=== PATIENT | female | born 1950 | race African-American/Black ===

== ENCOUNTER → 2017-07-24 | Outpatient (CLI) | payer MEDICARE ==
[~2017-07-24] MED LIST: ACET500T68 PO; AMLO10TA2 PO; CHOL100013 PO; DULO60CA6 PO; METO25TA4 PO; OMEP40CA5 PO; POTASSIUM CHLO10 MEQ PO; SIMV20TA3 PO; TRAM50TA PO
--- NOTE | 2017-07-24 11:37 | RAD ---
DATE: July 24, 2017 EXAM: DIGITAL SCREEN BILAT W/CAD HISTORY: Routine screening. COMPARISON: Priors back to January 11, 2012. TECHNIQUE: 2D digital CC and MLO views of each breast were obtained. This study was interpreted with the benefit of Computerized Aided Detection (CAD). FINDINGS: The breast parenchyma demonstrates scattered fibroglandular densities, category B. Small mass in the outer lower right breast is stable. There is no worrisome mass. There are no suspicious groupings of microcalcifications IMPRESSION: Stable mammogram with benign findings. BI-RADS CATEGORY: 2 BENIGN FINDING RECOMMENDED FOLLOW-UP: 12M 12 MONTH FOLLOW-UP PQRS compliance statement: Patient information was entered into a reminder system with a target due date for the next mammogram. Mammography is a sensitive method for finding small breast cancers, but it does not detect them all and is not a substitute for careful clinical examination. A negative mammogram does not negate a clinically suspicious finding and should not result in delay in biopsying a clinically suspicious abnormality. "Our facility is accredited by the [employer] Mammography [employer]."
== END | disposition home or self-care (01) ==
LOC: MAMMO 10:34
PROVIDERS: ATTEND Family Medicine
DX: Z12.31 Encounter for screening mammogram for malignant neoplasm of breast (principal)
CPT/HCPCS: G0202; 77067

== ENCOUNTER → 2018-01-15 | Outpatient (CLI) | payer MEDICARE ==
[~2018-01-15] MED LIST changes: -ACET500T68 PO; -AMLO10TA2 PO; -CHOL100013 PO; -DULO60CA6 PO; -METO25TA4 PO; -OMEP40CA5 PO; -POTASSIUM CHLO10 MEQ PO; +REGADENOSON 0.4 MG/5 ML DISP.SYRIN. IV; -SIMV20TA3 PO; -TRAM50TA PO
== END | disposition home or self-care (01) ==
LOC: NM 10:44
DX: I10 Essential (primary) hypertension (principal); R06.09 Other forms of dyspnea
CPT/HCPCS: 78452; 93017; 93306; 96374; 96375; 96376; A9500; J2785

== ENCOUNTER → 2018-09-12 | Outpatient (CLI) | payer MEDICARE ==
[~2018-09-12] MED LIST changes: +ACET500T68 PO; +AMLO10TA6 PO; +CHOL100013 PO; +DULO60CA6 PO; +METO25TA4 PO; +OMEP40CA5 PO; +POTA10TA12 PO; -REGADENOSON 0.4 MG/5 ML DISP.SYRIN. IV; +SIMV20TA3 PO; +TRAM50TA PO
--- NOTE | 2018-09-12 15:45 | RAD ---
DATE: 09/12/2018 EXAM: MAMMO ALISON SCREENING BILATERAL HISTORY: Routine screen COMPARISON: 07/24/2017 This study was interpreted with the benefit of Computerized Aided Detection (CAD). Breast Density: SCATTERED The breast parenchyma shows scattered fibroglandular densities. Breast parenchyma level B. FINDINGS: 2-D and 3-D tomosynthesis imaging was performed in CC and MLO projections. A small benign-appearing lymph node type density in the anterolateral aspect of the right breast is unchanged. A small 5-6 mm smooth nodule is present centrally in the right breast, better demonstrated on the current CC alison images. This has been intermittently visualized on some of the other studies such as the 01/11/2012 study, and appears unchanged. No new or enlarging breast densities are seen. No suspicious microcalcifications are evident. IMPRESSION: Stable mammograms without evidence of malignancy. BI-RADS CATEGORY: 2 BENIGN FINDING(S) RECOMMENDED FOLLOW-UP: 12M 12 MONTH FOLLOW-UP PQRS compliance statement: Patient information was entered into a reminder system with a target due date for the next mammogram. Mammography is a sensitive method for finding small breast cancers, but it does not detect them all and is not a substitute for careful clinical examination. A negative mammogram does not negate a clinically suspicious finding and should not result in delay in biopsying a clinically suspicious abnormality. "Our facility is accredited by the [employer] Mammography [employer]."
== END | disposition home or self-care (01) ==
LOC: MAMMO 14:00
PROVIDERS: ATTEND Family Medicine
DX: Z12.31 Encounter for screening mammogram for malignant neoplasm of breast (principal)
CPT/HCPCS: 77063; 77067

== ENCOUNTER 2019-04-27 07:08 | Emergency (ER) | payer MEDICARE, OTHER ==
[~2019-04-27] VITALS: Ht 162.6 cm; Wt 99.3 kg
[~2019-04-27 07:08] MED LIST changes: -AMLO10TA6 PO; +AMLO10TA8 PO
--- NOTE | 2019-04-27 07:29 | PHYS DOC ---
Adult General Chief Complaint Chief Complaint: high blood pressure HPI HPI Patient is a 68 year old female who presents with complaining of high blood pressure and nausea and dizziness. Patient states she has had fluctuation of blood pressure with taking losartan and seen by her primary care physician and started on when necessary chronic pain and anxiety medication. Patient states she had cataract surgery yesterday and felt nausea and her blood pressure was as high as 205. Patient denies chest pain, shortness of breath, blurred vision, headache, focal neuro deficit. Review of Systems Review of Systems Constitutional: Denies fever or chills [] Eyes: Denies change in visual acuity, redness, or eye pain [] HENT: Denies nasal congestion or sore throat [] Respiratory: Denies cough or shortness of breath [] Cardiovascular: No additional information not addressed in HPI [] GI: Denies abdominal pain, vomiting, bloody stools or diarrhea , reports naus ea[] : Denies dysuria or hematuria [] Musculoskeletal: Denies back pain or joint pain [] Integument: Denies rash or skin lesions [] Neurologic: Denies headache, focal weakness or sensory changes [] Endocrine: Denies polyuria or polydipsia [] All other systems were reviewed and found to be within normal limits, except as documented in this note. Current Medications Current Medications Current Medications Medications (Trade) Dose Ordered Sig/Kari Start Time Stop Time Status Last Admin Dose Admin Ondansetron HCl (Zofran) 4 mg 1X ONCE 04/27/19 07:30 04/27/19 07:31 DC 04/27/19 08:00 4 MG Allergies Allergies Allergies Coded Allergies Type Severity Reaction Last Updated Verified No Known Drug Allergies 08/06/14 No Physical Exam Physical Exam Constitutional: Well developed, well nourished, mild distress, non-toxic appearance. [] HENT: Normocephalic, atraumatic, oropharynx moist. Eyes: PERRLA, EOMI, conjunctiva normal, no discharge. [] Neck: Normal range of motion, no tenderness, supple, no stridor. [] Cardiovascular:Heart rate regular rhythm, no murmur [] Lungs & Thorax: Bilateral breath sounds clear to auscultation [] Abdomen: Bowel sounds normal, soft, no tenderness, no masses, no pulsatile masses. [] Skin: Warm, dry, no erythema, no rash. [] Back: No tenderness, no CVA tenderness. [] Extremities: No tenderness, no cyanosis, no clubbing, ROM intact, no edema. [] Neurologic: Alert and oriented X 3, normal motor function, normal sensory function, no focal deficits noted. [] Psychologic: Affect anxious, judgement normal, mood normal. [] Current Patient Data Vital Signs Vital Signs Date Time Temp Pulse Resp B/P (MAP) Pulse Ox O2 Delivery O2 Flow Rate FiO2 04/27/19 07:20 98.2 88 16 207/93 (131) 98 Room Air 98.2 Lab Values Laboratory Tests Test 04/27/19 07:30 04/27/19 08:00 04/27/19 08:28 White Blood Count 6.0 x10^3/uL (4.0-11.0) Red Blood Count 4.95 x10^6/uL (3.50-5.40) Hemoglobin 13.5 g/dL (12.0-15.5) Hematocrit 40.3 % (36.0-47.0) Mean Corpuscular Volume 82 fL (79-100) Mean Corpuscular Hemoglobin 27 pg (25-35) Mean Corpuscular Hemoglobin Concent 33 g/dL (31-37) Red Cell Distribution Width 16.7 % (11.5-14.5) H Platelet Count 233 x10^3/uL (140-400) Neutrophils (%) (Auto) 65 % (31-73) Lymphocytes (%) (Auto) 24 % (24-48) Monocytes (%) (Auto) 7 % (0-9) Eosinophils (%) (Auto) 4 % (0-3) H Basophils (%) (Auto) 1 % (0-3) Neutrophils # (Auto) 3.9 x10^3/uL (1.8-7.7) Lymphocytes # (Auto) 1.4 x10^3/uL (1.0-4.8) Monocytes # (Auto) 0.4 x10^3/uL (0.0-1.1) Eosinophils # (Auto) 0.2 x10^3/uL (0.0-0.7) Basophils # (Auto) 0.1 x10^3/uL (0.0-0.2) Sodium Level 140 mmol/L (136-145) Potassium Level 3.5 mmol/L (3.5-5.1) Chloride Level 103 mmol/L (98-107) Carbon Dioxide Level 26 mmol/L (21-32) Anion Gap 11 (6-14) Blood Urea Nitrogen 10 mg/dL (7-20) Creatinine 0.8 mg/dL (0.6-1.0) Estimated GFR (Cockcroft-Gault) 86.1 BUN/Creatinine Ratio 13 (6-20) Glucose Level 107 mg/dL (70-99) H Calcium Level 9.3 mg/dL (8.5-10.1) Magnesium Level 2.2 mg/dL (1.8-2.4) Total Bilirubin 0.5 mg/dL (0.2-1.0) Aspartate Amino Transferase (AST) 18 U/L (15-37) Alanine Aminotransferase (ALT) 23 U/L (14-59) Alkaline Phosphatase 55 U/L (46-116) Creatine Kinase 83 U/L (26-192) Creatine Kinase MB (Mass) 1.2 ng/mL (0.0-3.6) Creatine Kinase MB Relative Index 1.4 % (0-4) Troponin I Quantitative < 0.017 ng/mL (0.000-0.055) ZU-Rie-J-Type Natriuretic Peptide 68 pg/mL (0-124) Total Protein 7.5 g/dL (6.4-8.2) Albumin 4.1 g/dL (3.4-5.0) Albumin/Globulin Ratio 1.2 (1.0-1.7) Lipase 99 U/L (73-393) Prothrombin Time 11.6 SEC (11.7-14.0) L Prothrombin Time INR 0.9 (0.8-1.1) Urine Collection Type Unknown Urine Color Yellow Urine Clarity Clear Urine pH 6.5 Urine Specific [place] 1.015 Urine Protein Negative mg/dL (NEG-TRACE) Urine Glucose (UA) Negative mg/dL (NEG) Urine Ketones (Stick) Negative mg/dL (NEG) Urine Blood Negative (NEG) Urine Nitrite Negative (NEG) Urine Bilirubin Negative (NEG) Urine Urobilinogen Dipstick 0.2 mg/dL (0.2 mg/dL) Urine Leukocyte Esterase Negative (NEG) Urine RBC 0 /HPF (0-2) Urine WBC Occ /HPF (0-4) Urine Squamous Epithelial Cells Mod /LPF Urine Bacteria Moderate /HPF (0-FEW) Laboratory Tests 04/27/19 07:30 Laboratory Tests 04/27/19 07:30 EKG EKG EKG interpreted by me. EKG at 0 727 showed normal sinus rhythm at rate of 81, normal CT and QT intervals, left randolph axis, no acute ST and T-wave abnormalities. Radiology/Procedures Radiology/Procedures [][place] [id number] IMAGING REPORT Signed PATIENT: FELECIA SHELTON ACCOUNT: [id number] : 1950 LOCATION: ER AGE: 68 SEX: F EXAM STATUS: REG ER ORD. PHYSICIAN: MARY MARTINEZ MD REASON: dizziness and elevation of blood pressure PROCEDURE: PORTABLE CHEST 1V Indication: Dizziness and elevated blood pressure TECHNIQUE: Single AP view of the chest COMPARISON: None FINDINGS: Heart is normal in size. Aortic knob calcifications present systemic artery hypertension. Lungs are clear. No pneumothorax or pleural effusion. Visualized bony thorax within normal limits. IMPRESSION: No acute pulmonary process. Electronically signed by: Vinod Villalobos DO (04/27/2019 8:12 AM) [facility] DICTATED and SIGNED BY: VINOD VILLALOBOS DO DATE: 04/27/[address] [id number] IMAGING REPORT Signed PATIENT: FELECIA SHELTON ACCOUNT: [id number] : 1950 LOCATION: ER AGE: 68 SEX: F EXAM STATUS: REG ER ORD. PHYSICIAN: MARY MARTINEZ MD REASON: dizziness and elevation of blood pressure PROCEDURE: CT HEAD WO CONTRAST PQRS Compliance statement: One or more of the following individualized dose reduction techniques were utilized for this examination: 1. Automated exposure control. 2. Adjustment of the mA and/or kV according to patient size. 3. Use of iterative reconstruction technique. Indication:Dizziness. Hypertension. TECHNIQUE: CT head without IV contrast COMPARISON: 03/14/2012 FINDINGS: No pathologic extra-axial or intra-axial fluid collection. The ventricles and basal cisterns are within normal limits. No acute intracranial bleed. No focal loss of verdin-white differentiation. Orbits are within normal limits. No suspicious calvarial lesion. Visualized paranasal sinuses and mastoid air cells are clear. IMPRESSION: No acute intracranial bleed. If concern for acute ischemic stroke is high, please consider MRI brain. Electronically signed by: Vinod Villalobos DO (04/27/2019 8:02 AM) [facility] DICTATED and SIGNED BY: VINOD VILLALOBOS DO DATE: 04/27/19 0802 Course & Med Decision Making Course & Med Decision Making Pertinent Labs and Imaging studies reviewed. (See chart for details) Evaluation of patient in ER showed 68-year-old female patient with complaining of dizziness and elevation of blood pressure. Patient had blood pressure of 207 at arrival to ER that gradually decreased without treatment to 173/99. Patient had unremarkable physical exam and CT head and chest x-ray, EKG, labs. He was advised to take when necessary chronically for elevation of blood pressure and continuing daily blood sugars medication and return to ER if symptoms persistent. Dragon Disclaimer Dragon Disclaimer This electronic medical record was generated, in whole or in part, using a voice recognition dictation system. Departure Departure Impression: Primary Impression: Uncontrolled hypertension Additional Impression: Anxiety about health Disposition: 01 HOME, SELF-CARE (at 0 925) Condition: IMPROVED Referrals: SOILA MUSTAFA MD (PCP) Patient Instructions: Form - Blood Pressure Record Sheet, How to Take Your Blood Pressure, Bcrs-tb-Laip, Managing Your High Blood Pressure Additional Instructions: Continue current medication Follow-up with your primary care physician in 3-5 days Return to ER if not getting better Problem Qualifiers MARY MARTINEZ MD Apr 27, 2019 07:29
[2019-04-27] MEDS ORDERED: ONDANSETRON PF 4 MG/2 ML VIAL. IV ONE (07:30)
[2019-04-27 07:37] LABS: BASO # 0.1 x10^3/uL (0.0-0.2); BASO % 1 % (0-3); EOS # 0.2 x10^3/uL (0.0-0.7); EOS % 4 % (0-3); HEMATOCRIT 40.3 % (36.0-47.0); HEMOGLOBIN 13.5 g/dL (12.0-15.5); LYMPH # 1.4 x10^3/uL (1.0-4.8); LYMPH % 24 % (24-48); MEAN CORPUSCULAR HEMOGLOBIN 27 pg (25-35); MEAN CORPUSCULAR HGB CONC 33 g/dL (31-37); MEAN CORPUSCULAR VOLUME 82 fL (79-100); MONO # 0.4 x10^3/uL (0.0-1.1); MONO % 7 % (0-9); NEUT # 3.9 x10^3/uL (1.8-7.7); NEUT % 65 % (31-73); PLATELET COUNT 233 x10^3/uL (140-400); RED BLOOD COUNT 4.95 x10^6/uL (3.50-5.40); RED CELL DISTRIBUTION WIDTH 16.7 % (11.5-14.5)
[2019-04-27 07:50] LABS: CALCIUM 9.3 mg/dL (8.5-10.1); CREATININE 0.8 mg/dL (0.6-1.0); GFR 86.1; POTASSIUM 3.5 mmol/L (3.5-5.1)
[2019-04-27 07:56] LABS: ALBUMIN 4.1 g/dL (3.4-5.0); ALBUMIN/GLOBULIN RATIO 1.2 (1.0-1.7); MAGNESIUM 2.2 mg/dL (1.8-2.4); TOTAL BILIRUBIN 0.5 mg/dL (0.2-1.0); TOTAL PROTEIN 7.5 g/dL (6.4-8.2)
--- NOTE | 2019-04-27 08:05 | RAD ---
PQRS Compliance statement: One or more of the following individualized dose reduction techniques were utilized for this examination: 1. Automated exposure control. 2. Adjustment of the mA and/or kV according to patient size. 3. Use of iterative reconstruction technique. Indication:Dizziness. Hypertension. TECHNIQUE: CT head without IV contrast COMPARISON: 03/14/2012 FINDINGS: No pathologic extra-axial or intra-axial fluid collection. The ventricles and basal cisterns are within normal limits. No acute intracranial bleed. No focal loss of verdin-white differentiation. Orbits are within normal limits. No suspicious calvarial lesion. Visualized paranasal sinuses and mastoid air cells are clear. IMPRESSION: No acute intracranial bleed. If concern for acute ischemic stroke is high, please consider MRI brain. Electronically signed by: Vinod Villalobos DO (04/27/2019 8:02 AM) [facility]
--- NOTE | 2019-04-27 08:15 | RAD ---
Indication: Dizziness and elevated blood pressure TECHNIQUE: Single AP view of the chest COMPARISON: None FINDINGS: Heart is normal in size. Aortic knob calcifications present systemic artery hypertension. Lungs are clear. No pneumothorax or pleural effusion. Visualized bony thorax within normal limits. IMPRESSION: No acute pulmonary process. Electronically signed by: Vinod Villalobos DO (04/27/2019 8:12 AM) [facility]
[2019-04-27 08:16] LABS: PROTHROMBIN TIME PATIENT 11.6 SEC (11.7-14.0)
[2019-04-27 08:44] LABS: BILIRUBIN,URINE NEGATIVE (NEG); CLARITY,URINE CLEAR; COLOR,URINE YELLOW; NITRITE,URINE NEGATIVE (NEG); PH,URINE 6.5; PROTEIN,URINE NEGATIVE (NEG-TRACE); UROBILINOGEN,URINE 0.2 mg/dL (0.2 mg/dL)
[2019-04-27 09:14] LABS: BACTERIA,URINE MODERATE /HPF (0-FEW); RBC,URINE 0 /HPF (0-2); SQUAMOUS EPITHELIAL CELL,UR MOD /LPF; WBC,URINE OCC /HPF (0-4)
[2019-04-27 09:34] VITALS: BP 173/88
--- NOTE | 2019-04-27 13:40 | EKG ---
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
== END 2019-04-27 09:37 | disposition home or self-care (01) ==
LOC: ER 07:08
DX: I10 Essential (primary) hypertension (principal); F41.9 Anxiety disorder, unspecified; R42 Dizziness and giddiness; G89.29 Other chronic pain; R11.0 Nausea
CPT/HCPCS: 36415; 70450; 71045; 80053; 81001; 82553; 83690; 83735; 83880; 84484; 85025; 85610; 87086; 93005; 96374; 99285; J2405

== ENCOUNTER 2019-05-04 12:09 | Observation (INO) | payer MEDICARE, OTHER ==
[~2019-05-04] VITALS: Ht 162.6 cm; Wt 98.9 kg
--- NOTE | 2019-05-04 12:53 | PHYS DOC ---
Past Medical History Past Medical History: High Cholesterol, Hypertension Additional Past Medical Histor: gastritis Past Surgical History: Other Additional Past Surgical Histo: ABD MESH, cataract Alcohol Use: None Drug Use: None Adult General Chief Complaint Chief Complaint: VISION PROBLEM HPI HPI Patient is a 68 year old -[place] Citizen female who presents to the emergency department today, accompanied by her , with complaints of vision changes that occurred between 1700 and 2200 yesterday evening. Patient states during that time she could not see out of either of her eyes. When she opened her eyes at that time all she saw was the color verdin bilaterally. She states that she did not come to the emergency department yesterday because she had a follow-up shaan ointment with Dr. Minor an early childhood teacher assistant today. Patient states her follow-up appointment was for a postop visit after having cataract surgery in her left eye on April 26, [address] Hobson. She denies any pain at this time. ROS as follows: Patient denies complaints of any head pain, neck pain, head injury, numbness, tingling, weakness, difficulty speaking, difficulty swallowing, incoordination, nausea, vomiting, diarrhea, or fever. She denies any vision changes at this time. During physical exam pt reports experiencing a sharp substernal pain in her chest. She denies any palpitations, shortness of breath, or dizziness. All other ROS is neg unless otherwise noted in HPI. Review of Systems Review of Systems SEE ABOVE Current Medications Current Medications Current Medications Medications (Trade) Dose Ordered Sig/Kari Start Time Stop Time Status Last Admin Dose Admin Acetaminophen (Tylenol) 500 mg PRN Q6HRS PRN 05/04/19 13:30 Zolpidem Tartrate (Ambien) 5 mg PRN QHS PRN 05/04/19 13:30 Allergies Allergies Allergies Coded Allergies Type Severity Reaction Last Updated Verified No Known Drug Allergies 08/06/14 No Physical Exam Physical Exam SEE ABOVE Constitutional: Well developed, well nourished, no acute distress, non-toxic appearance, obese. [] HENT: Normocephalic, atraumatic, bilateral external ears normal, nose normal. [] Eyes: PERRLA, EOMI, conjunctiva normal, no discharge, left eye cataract. [] Neck: Normal range of motion, no stridor. [] Cardiovascular:Heart rate regular rhythm, S2 murmur present Lungs & Thorax: Bilateral breath sounds clear to auscultation [] Abdomen: Bowel sounds normal, soft, no tenderness, no masses, no pulsatile masses. [] Skin: Warm, dry, no erythema, no rash. [] Extremities: No cyanosis, no clubbing, ROM intact, no edema. [] Neurologic: Alert and oriented X 3, normal motor function, normal sensory function, no focal deficits noted. [] Psychologic: Affect normal, judgement normal, mood normal. [] Current Patient Data Vital Signs Vital Signs Date Time Temp Pulse Resp B/P (MAP) Pulse Ox O2 Delivery O2 Flow Rate FiO2 05/04/19 13:10 72 16 148/65 (92) 92 Room Air 05/04/19 12:10 98.0 98.0 Lab Values Laboratory Tests Test 05/04/19 12:40 White Blood Count 6.8 x10^3/uL (4.0-11.0) Red Blood Count 4.90 x10^6/uL (3.50-5.40) Hemoglobin 13.2 g/dL (12.0-15.5) Hematocrit 40.2 % (36.0-47.0) Mean Corpuscular Volume 82 fL (79-100) Mean Corpuscular Hemoglobin 27 pg (25-35) Mean Corpuscular Hemoglobin Concent 33 g/dL (31-37) Red Cell Distribution Width 15.9 % (11.5-14.5) H Platelet Count 252 x10^3/uL (140-400) Neutrophils (%) (Auto) 69 % (31-73) Lymphocytes (%) (Auto) 22 % (24-48) L Monocytes (%) (Auto) 5 % (0-9) Eosinophils (%) (Auto) 4 % (0-3) H Basophils (%) (Auto) 1 % (0-3) Neutrophils # (Auto) 4.7 x10^3/uL (1.8-7.7) Lymphocytes # (Auto) 1.5 x10^3/uL (1.0-4.8) Monocytes # (Auto) 0.4 x10^3/uL (0.0-1.1) Eosinophils # (Auto) 0.2 x10^3/uL (0.0-0.7) Basophils # (Auto) 0.1 x10^3/uL (0.0-0.2) Prothrombin Time 12.9 SEC (11.7-14.0) Prothrombin Time INR 1.0 (0.8-1.1) PTT 28 SEC (24-38) Sodium Level 144 mmol/L (136-145) Potassium Level 3.7 mmol/L (3.5-5.1) Chloride Level 105 mmol/L (98-107) Carbon Dioxide Level 29 mmol/L (21-32) Anion Gap 10 (6-14) Blood Urea Nitrogen 16 mg/dL (7-20) Creatinine 1.0 mg/dL (0.6-1.0) Estimated GFR (Cockcroft-Gault) 66.5 BUN/Creatinine Ratio 16 (6-20) Glucose Level 118 mg/dL (70-99) H Calcium Level 9.2 mg/dL (8.5-10.1) Magnesium Level 2.2 mg/dL (1.8-2.4) Total Bilirubin 0.5 mg/dL (0.2-1.0) Aspartate Amino Transferase (AST) 14 U/L (15-37) L Alanine Aminotransferase (ALT) 17 U/L (14-59) Alkaline Phosphatase 51 U/L (46-116) Troponin I Quantitative < 0.017 ng/mL (0.000-0.055) Total Protein 7.2 g/dL (6.4-8.2) Albumin 3.5 g/dL (3.4-5.0) Albumin/Globulin Ratio 0.9 (1.0-1.7) L Laboratory Tests 05/04/19 12:40 Laboratory Tests 05/04/19 12:40 EKG EKG 1238- SR rate 77, no STEMI, Q waves present, read by Dr. Pimentel[] Radiology/Procedures Radiology/Procedures PROCEDURE: CHEST PA & LATERAL PA and lateral chest. HISTORY: Chest pain, vision loss one day ago but resolved PA and lateral views were taken of the chest. Lungs are clear. Heart is normal in size. There is no pleural effusion. There is mild scoliosis. IMPRESSION: 1. No acute chest disease. PROCEDURE: CT HEAD WO CONTRAST CT brain without contrast. HISTORY: Episode of vision loss yesterday, now resolved CT scan of brain was done without contrast. There is no intracranial hemorrhage or subdural hematoma. Ventricles are normal in size. There is no mass or shift of the midline. An acute CVA is not identified. Visualized sinuses are clear. IMPRESSION: 1. No intracranial hemorrhage or acute finding noted. [] Course & Med Decision Making Course & Med Decision Making Pertinent Labs and Imaging studies reviewed. (See chart for details) DX: tia [id number] with Dr. Velez, will admit for TIA to med/surg [] Dragon Disclaimer Dragon Disclaimer This electronic medical record was generated, in whole or in part, using a voice recognition dictation system. Departure Departure Impression: Primary Impression: TIA (transient ischemic attack) Disposition: ADMITTED INPATIENT Admitting Physician: YVONNE holm) Condition: STABLE Referrals: SOILA MUSTAFA MD (PCP) VICKEY STAHL APRN May 04, 2019 12:52
[2019-05-04 13:00] LABS: BASO # 0.1 x10^3/uL (0.0-0.2); BASO % 1 % (0-3); EOS # 0.2 x10^3/uL (0.0-0.7); EOS % 4 % (0-3); HEMATOCRIT 40.2 % (36.0-47.0); HEMOGLOBIN 13.2 g/dL (12.0-15.5); LYMPH # 1.5 x10^3/uL (1.0-4.8); LYMPH % 22 % (24-48); MEAN CORPUSCULAR HEMOGLOBIN 27 pg (25-35); MEAN CORPUSCULAR HGB CONC 33 g/dL (31-37); MEAN CORPUSCULAR VOLUME 82 fL (79-100); MONO # 0.4 x10^3/uL (0.0-1.1); MONO % 5 % (0-9); NEUT # 4.7 x10^3/uL (1.8-7.7); NEUT % 69 % (31-73); PLATELET COUNT 252 x10^3/uL (140-400); RED CELL DISTRIBUTION WIDTH 15.9 % (11.5-14.5); WHITE BLOOD COUNT 6.8 x10^3/uL (4.0-11.0)
[2019-05-04 13:05] LABS: CALCIUM 9.2 mg/dL (8.5-10.1); GFR 66.5; POTASSIUM 3.7 mmol/L (3.5-5.1)
[2019-05-04 13:10] LABS: PROTHROMBIN TIME PATIENT 12.9 SEC (11.7-14.0)
[2019-05-04 13:11] LABS: ALBUMIN 3.5 g/dL (3.4-5.0); ALBUMIN/GLOBULIN RATIO 0.9 (1.0-1.7); MAGNESIUM 2.2 mg/dL (1.8-2.4); TOTAL BILIRUBIN 0.5 mg/dL (0.2-1.0); TOTAL PROTEIN 7.2 g/dL (6.4-8.2)
--- NOTE | 2019-05-04 13:14 | RAD ---
CT brain without contrast. HISTORY: Episode of vision loss yesterday, now resolved CT scan of brain was done without contrast. There is no intracranial hemorrhage or subdural hematoma. Ventricles are normal in size. There is no mass or shift of the midline. An acute CVA is not identified. Visualized sinuses are clear. IMPRESSION: 1. No intracranial hemorrhage or acute finding noted. Electronically signed by: Roberto Burk MD (05/04/2019 1:11 PM) [facility]
--- NOTE | 2019-05-04 13:15 | RAD ---
PA and lateral chest. HISTORY: Chest pain, vision loss one day ago but resolved PA and lateral views were taken of the chest. Lungs are clear. Heart is normal in size. There is no pleural effusion. There is mild scoliosis. IMPRESSION: 1. No acute chest disease. Electronically signed by: Roberto Burk MD (05/04/2019 1:12 PM) [facility]
[2019-05-04] MEDS ORDERED: ACETAMINOPHEN 500 MG TABLET PO PRN (13:30)
[2019-05-04] MEDS ORDERED: ZOLPIDEM 5 MG TABLET. PO PRN (13:30)
[2019-05-04] MEDS ORDERED: ONDANSETRON PF 4 MG/2 ML VIAL. IV PRN (14:00)
[2019-05-04] MEDS ORDERED: HYDROcodone/APAP 5/325MG 1 TAB TABLET PO PRN (14:00)
[2019-05-04] MEDS ORDERED: cloNIDine HCL 0.1 MG TABLET PO PRN (14:00)
--- NOTE | 2019-05-04 14:02 | PDOC1 ---
History and Physical Date of Admission Date of Admission DATE: 05/04/19 TIME: 13:56 Identification/Chief Complaint Chief Complaint Blurry vision both eyes, Source Source: Caregiver, Chart review, Patient History of Present Illness History of Present Illness 68-year-old female, obese BMI 38, history of hypertension on meds and is compliant, sent in by histological illustrator today Monday after having an eye exam for blurring of vision, bilateral lasted 5 hours from 5 PM to 10 PM yesterday. She had cataract surgery 1 week ago, she had some blurry of vision of both eyes but describes some fuzzy cotton ball on the left eye - the site of cataract surgery. Ophtha exam apparently was expected findings post cataract sx. The histological illustrator wanted to r./o TIA hence the referral here Neuro exam is nonfocal, she is seeing clearly now. She is severely claustrophobic, requests an open MRI, and also wants to be admitted. Asks me to sedate her. NO metallic objects, CT head and CXR and VS and labs ok . Past Medical History Cardiovascular: HTN Past Surgical History Past Surgical History: Other (catarct sx last week) Family History Family History: No Significant Social History Smoke: No ALCOHOL: none Drugs: None Current Problem List Problem List Problems Medical Problems: (1) TIA (transient ischemic attack) Status: Acute Current Medications Current Medications Current Medications Amlodipine Besylate (Norvasc) 10 mg DAILY PO ; Start 05/04/19 at 15:00 Metoprolol Tartrate (Lopressor) 25 mg BID PO ; Start 05/04/19 at 21:00 Potassium Chloride (Klor-Con) 10 meq DAILY PO ; Start 05/04/19 at 15:00 Duloxetine HCl (Cymbalta) 60 mg DAILY PO ; Start 05/04/19 at 15:00 Pantoprazole Sodium (Protonix) 40 mg DAILYAC PO ; Start 05/04/19 at 15:00 Simvastatin (Zocor) 20 mg HS PO ; Start 05/04/19 at 21:00 Tramadol HCl (Ultram) 50 mg PRN DAILY PRN PO PAIN; Start 05/04/19 at 13:45 Acetaminophen (Tylenol) 500 mg PRN Q6HRS PRN PO HEADACHE / TEMP; Start 05/04/19 at 13:30 Vitamin D (Vitamin D3) 1,000 unit DAILY PO ; Start 05/04/19 at 15:00 Zolpidem Tartrate (Ambien) 5 mg PRN QHS PRN PO INSOMNIA; Start 05/04/19 at 13:30 Active Scripts Active Reported Vitamin D (Cholecalciferol (Vitamin D3)) 1,000 Unit Capsule 1,000 Unit PO Cymbalta (Duloxetine Hcl) 60 Mg Capsule.dr 1 Cap PO DAILY Metoprolol Tartrate 25 Mg Tablet 25 Mg PO BID Acetaminophen 500 Mg Tablet 500 Mg PO Omeprazole 40 Mg Capsule.dr 1 Cap PO DAILY Simvastatin 20 Mg Tablet 20 Mg PO DAILY Amlodipine Besylate 10 Mg Tablet 1 Tab PO DAILY Tramadol Hcl 50 Mg Tablet 50 Mg PO DAILY PRN Potassium Chloride 10 Meq Capsule.er 1 Cap PO DAILY Allergies Allergies: Coded Allergies: No Known Drug Allergies (Unverified , 08/06/14) ROS Review of System A 14 point ROS was completed with the following noted as positive: Other systems reviewed and negative. \CONSTITUTIONAL: No fever or chills EYES: No recent changes SKIN: No rash or itching CARDIOVASCULAR: No chest pain, syncope, palpitations, or edema RESPIRATORY: No SOB or cough GASTROINTESTINAL: No nausea, vomiting or abdominal pain NEUROLOGICAL: No headaches or weakness ENDOCRINE: No cold or heat intolerance GENITOURINARY: No urgency or frequency of urination MUSCULOSKELETAL: No back pain or joint pain LYMPHATICS: No enlarged lymph nodes PSYCHIATRIC: No anxiety or depression Physical Exam General: Alert, Oriented X3, Cooperative, No acute distress HEENT: Atraumatic, PERRLA, EOMI Lungs: Clear to auscultation, Normal air movement Heart: S1S2, RRR, no thrills, no rubs, no gallops, no murmurs Cardiovascular: S1, S2 Breasts: Normal, Rt breast nml w/o mass, Lt breast nml w/o mass, Nipples normal Abdomen: Normal bowel sounds, Soft, No tenderness, No hepatosplenomegaly, No masses Rectal Exam: not examined PELVIC: Nml ext genitalia Extremities: No clubbing, No cyanosis, No edema, Normal pulses, No tenderness/swelling Skin: No rashes, No breakdown, No significant lesion Neuro: Normal gait, Normal speech, Strength at 5/5 X4 ext, Normal tone, Sensation intact, Cranial nerves 3-12 NL, Reflexes 2+ Vitals Vitals Vital Signs Date Time Temp Pulse Resp B/P (MAP) Pulse Ox O2 Delivery O2 Flow Rate FiO2 05/04/19 12:10 98.0 86 16 142/72 (95) 95 Room Air 98.0 Labs Labs Laboratory Tests Test 05/04/19 12:40 White Blood Count 6.8 x10^3/uL (4.0-11.0) Red Blood Count 4.90 x10^6/uL (3.50-5.40) Hemoglobin 13.2 g/dL (12.0-15.5) Hematocrit 40.2 % (36.0-47.0) Mean Corpuscular Volume 82 fL (79-100) Mean Corpuscular Hemoglobin 27 pg (25-35) Mean Corpuscular Hemoglobin Concent 33 g/dL (31-37) Red Cell Distribution Width 15.9 % (11.5-14.5) Platelet Count 252 x10^3/uL (140-400) Neutrophils (%) (Auto) 69 % (31-73) Lymphocytes (%) (Auto) 22 % (24-48) Monocytes (%) (Auto) 5 % (0-9) Eosinophils (%) (Auto) 4 % (0-3) Basophils (%) (Auto) 1 % (0-3) Neutrophils # (Auto) 4.7 x10^3/uL (1.8-7.7) Lymphocytes # (Auto) 1.5 x10^3/uL (1.0-4.8) Monocytes # (Auto) 0.4 x10^3/uL (0.0-1.1) Eosinophils # (Auto) 0.2 x10^3/uL (0.0-0.7) Basophils # (Auto) 0.1 x10^3/uL (0.0-0.2) Prothrombin Time 12.9 SEC (11.7-14.0) Prothromb Time International Ratio 1.0 (0.8-1.1) Activated Partial Thromboplast Time 28 SEC (24-38) Sodium Level 144 mmol/L (136-145) Potassium Level 3.7 mmol/L (3.5-5.1) Chloride Level 105 mmol/L (98-107) Carbon Dioxide Level 29 mmol/L (21-32) Anion Gap 10 (6-14) Blood Urea Nitrogen 16 mg/dL (7-20) Creatinine 1.0 mg/dL (0.6-1.0) Estimated GFR (Cockcroft-Gault) 66.5 BUN/Creatinine Ratio 16 (6-20) Glucose Level 118 mg/dL (70-99) Calcium Level 9.2 mg/dL (8.5-10.1) Magnesium Level 2.2 mg/dL (1.8-2.4) Total Bilirubin 0.5 mg/dL (0.2-1.0) Aspartate Amino Transf (AST/SGOT) 14 U/L (15-37) Alanine Aminotransferase (ALT/SGPT) 17 U/L (14-59) Alkaline Phosphatase 51 U/L (46-116) Troponin I Quantitative < 0.017 ng/mL (0.000-0.055) Total Protein 7.2 g/dL (6.4-8.2) Albumin 3.5 g/dL (3.4-5.0) Albumin/Globulin Ratio 0.9 (1.0-1.7) Laboratory Tests Test 05/04/19 12:40 White Blood Count 6.8 x10^3/uL (4.0-11.0) Red Blood Count 4.90 x10^6/uL (3.50-5.40) Hemoglobin 13.2 g/dL (12.0-15.5) Hematocrit 40.2 % (36.0-47.0) Mean Corpuscular Volume 82 fL (79-100) Mean Corpuscular Hemoglobin 27 pg (25-35) Mean Corpuscular Hemoglobin Concent 33 g/dL (31-37) Red Cell Distribution Width 15.9 % (11.5-14.5) Platelet Count 252 x10^3/uL (140-400) Neutrophils (%) (Auto) 69 % (31-73) Lymphocytes (%) (Auto) 22 % (24-48) Monocytes (%) (Auto) 5 % (0-9) Eosinophils (%) (Auto) 4 % (0-3) Basophils (%) (Auto) 1 % (0-3) Neutrophils # (Auto) 4.7 x10^3/uL (1.8-7.7) Lymphocytes # (Auto) 1.5 x10^3/uL (1.0-4.8) Monocytes # (Auto) 0.4 x10^3/uL (0.0-1.1) Eosinophils # (Auto) 0.2 x10^3/uL (0.0-0.7) Basophils # (Auto) 0.1 x10^3/uL (0.0-0.2) Prothrombin Time 12.9 SEC (11.7-14.0) Prothromb Time International Ratio 1.0 (0.8-1.1) Activated Partial Thromboplast Time 28 SEC (24-38) Sodium Level 144 mmol/L (136-145) Potassium Level 3.7 mmol/L (3.5-5.1) Chloride Level 105 mmol/L (98-107) Carbon Dioxide Level 29 mmol/L (21-32) Anion Gap 10 (6-14) Blood Urea Nitrogen 16 mg/dL (7-20) Creatinine 1.0 mg/dL (0.6-1.0) Estimated GFR (Cockcroft-Gault) 66.5 BUN/Creatinine Ratio 16 (6-20) Glucose Level 118 mg/dL (70-99) Calcium Level 9.2 mg/dL (8.5-10.1) Magnesium Level 2.2 mg/dL (1.8-2.4) Total Bilirubin 0.5 mg/dL (0.2-1.0) Aspartate Amino Transf (AST/SGOT) 14 U/L (15-37) Alanine Aminotransferase (ALT/SGPT) 17 U/L (14-59) Alkaline Phosphatase 51 U/L (46-116) Troponin I Quantitative < 0.017 ng/mL (0.000-0.055) Total Protein 7.2 g/dL (6.4-8.2) Albumin 3.5 g/dL (3.4-5.0) Albumin/Globulin Ratio 0.9 (1.0-1.7) VTE Prophylaxis Ordered VTE Prophylaxis Devices: Yes VTE Pharmacological Prophylaxi: Yes Assessment/Plan Assessment/Plan Acute onset bilateral blurring of vision, transient-resolved after 5 hrs Left eye fuzzy cotton ball appearance-status post left eye cataract surgery last week-expected eyeI findings as per histological illustrator visit today Obesity BMI 38 Hypertension-controlled Plan neuro consult, we'll try to give Ativan prior to MRI if that test is needed I have reconciled home meds FULL CODE oBS Seen at ARLENE BARKER MD May 04, 2019 14:02
[2019-05-04] MEDS: CHOLECALCIFEROL (VITAMIN D3) 1,000 UNIT TABLET PO SCH (16:30)
[2019-05-04] MEDS: POTASSIUM CHLORIDE 10 MEQ TABLET.ER. PO SCH (16:31)
[2019-05-04] MEDS: DULoxetine HCL 30 MG CAPSULE.DR PO SCH (16:31)
[2019-05-04] MEDS: amLODIPine BESYLATE 10 MG TABLET PO SCH (16:31)
[2019-05-04] MEDS: PANTOPRAZOLE 40 MG TABLET.DR. PO SCH (16:32)
[2019-05-04 19:34] VITALS: BP 152/68
[2019-05-04] MEDS: traMADol 50 MG TABLET PO PRN (20:26)
[2019-05-04] MEDS: METOPROLOL TART IMMED RELEASE 25 MG TABLET. PO SCH (20:27)
[2019-05-04] MEDS ORDERED: SIMVASTATIN 20 MG TABLET PO SCH (21:00)
[2019-05-04 22:50] VITALS: BP 158/67
[2019-05-05 03:20] VITALS: BP 144/67
[2019-05-05 07:35] VITALS: BP 143/64
[2019-05-05] MEDS: POTASSIUM CHLORIDE 10 MEQ TABLET.ER. PO SCH (08:37)
[2019-05-05] MEDS: METOPROLOL TART IMMED RELEASE 25 MG TABLET. PO SCH (08:37)
[2019-05-05] MEDS: CHOLECALCIFEROL (VITAMIN D3) 1,000 UNIT TABLET PO SCH (08:37)
[2019-05-05] MEDS: amLODIPine BESYLATE 10 MG TABLET PO SCH (08:38)
[2019-05-05] MEDS: DULoxetine HCL 30 MG CAPSULE.DR PO SCH (08:38)
[2019-05-05] MEDS: PANTOPRAZOLE 40 MG TABLET.DR. PO SCH (08:39)
[2019-05-05] MEDS: traMADol 50 MG TABLET PO PRN (08:43)
[2019-05-05] MEDS ORDERED: LOSARTAN POTASSIUM 50 MG TABLET. PO SCH (09:00)
[2019-05-05 11:00] VITALS: BP 150/66
--- NOTE | 2019-05-05 11:29 | PDOC3 ---
Discharge Summary Visit Information Date of Admission: May 04, 2019 Date of Discharge: May 05, 2019 Admitting Diagnosis Comment: Acute onset bilateral blurring of vision, transient-resolved after 5 hrs Left eye fuzzy cotton ball appearance-status post left eye cataract surgery last week-expected eyeI findings as per case monitor visit today Obesity BMI 38 Hypertension-controlled Final Diagnosis Problems Medical Problems: (1) TIA (transient ischemic attack) Status: Acute Brief Hospital Course Allergies Allergies Coded Allergies Type Severity Reaction Last Updated Verified No Known Drug Allergies 08/06/14 No Vital Signs Vital Signs Date Time Temp Pulse Resp B/P (MAP) Pulse Ox O2 Delivery O2 Flow Rate FiO2 05/05/19 09:51 93 Room Air 2.0 05/05/19 08:39 75 143/64 05/05/19 07:35 98.5 16 98.5 Lab Results Laboratory Tests Test 05/04/19 12:40 White Blood Count 6.8 x10^3/uL (4.0-11.0) Red Blood Count 4.90 x10^6/uL (3.50-5.40) Hemoglobin 13.2 g/dL (12.0-15.5) Hematocrit 40.2 % (36.0-47.0) Mean Corpuscular Volume 82 fL (79-100) Mean Corpuscular Hemoglobin 27 pg (25-35) Mean Corpuscular Hemoglobin Concent 33 g/dL (31-37) Red Cell Distribution Width 15.9 % (11.5-14.5) Platelet Count 252 x10^3/uL (140-400) Neutrophils (%) (Auto) 69 % (31-73) Lymphocytes (%) (Auto) 22 % (24-48) Monocytes (%) (Auto) 5 % (0-9) Eosinophils (%) (Auto) 4 % (0-3) Basophils (%) (Auto) 1 % (0-3) Neutrophils # (Auto) 4.7 x10^3/uL (1.8-7.7) Lymphocytes # (Auto) 1.5 x10^3/uL (1.0-4.8) Monocytes # (Auto) 0.4 x10^3/uL (0.0-1.1) Eosinophils # (Auto) 0.2 x10^3/uL (0.0-0.7) Basophils # (Auto) 0.1 x10^3/uL (0.0-0.2) Prothrombin Time 12.9 SEC (11.7-14.0) Prothromb Time International Ratio 1.0 (0.8-1.1) Activated Partial Thromboplast Time 28 SEC (24-38) Sodium Level 144 mmol/L (136-145) Potassium Level 3.7 mmol/L (3.5-5.1) Chloride Level 105 mmol/L (98-107) Carbon Dioxide Level 29 mmol/L (21-32) Anion Gap 10 (6-14) Blood Urea Nitrogen 16 mg/dL (7-20) Creatinine 1.0 mg/dL (0.6-1.0) Estimated GFR (Cockcroft-Gault) 66.5 BUN/Creatinine Ratio 16 (6-20) Glucose Level 118 mg/dL (70-99) Calcium Level 9.2 mg/dL (8.5-10.1) Magnesium Level 2.2 mg/dL (1.8-2.4) Total Bilirubin 0.5 mg/dL (0.2-1.0) Aspartate Amino Transf (AST/SGOT) 14 U/L (15-37) Alanine Aminotransferase (ALT/SGPT) 17 U/L (14-59) Alkaline Phosphatase 51 U/L (46-116) Troponin I Quantitative < 0.017 ng/mL (0.000-0.055) Total Protein 7.2 g/dL (6.4-8.2) Albumin 3.5 g/dL (3.4-5.0) Albumin/Globulin Ratio 0.9 (1.0-1.7) Laboratory Tests Test 05/04/19 12:40 White Blood Count 6.8 x10^3/uL (4.0-11.0) Red Blood Count 4.90 x10^6/uL (3.50-5.40) Hemoglobin 13.2 g/dL (12.0-15.5) Hematocrit 40.2 % (36.0-47.0) Mean Corpuscular Volume 82 fL (79-100) Mean Corpuscular Hemoglobin 27 pg (25-35) Mean Corpuscular Hemoglobin Concent 33 g/dL (31-37) Red Cell Distribution Width 15.9 % (11.5-14.5) Platelet Count 252 x10^3/uL (140-400) Neutrophils (%) (Auto) 69 % (31-73) Lymphocytes (%) (Auto) 22 % (24-48) Monocytes (%) (Auto) 5 % (0-9) Eosinophils (%) (Auto) 4 % (0-3) Basophils (%) (Auto) 1 % (0-3) Neutrophils # (Auto) 4.7 x10^3/uL (1.8-7.7) Lymphocytes # (Auto) 1.5 x10^3/uL (1.0-4.8) Monocytes # (Auto) 0.4 x10^3/uL (0.0-1.1) Eosinophils # (Auto) 0.2 x10^3/uL (0.0-0.7) Basophils # (Auto) 0.1 x10^3/uL (0.0-0.2) Prothrombin Time 12.9 SEC (11.7-14.0) Prothromb Time International Ratio 1.0 (0.8-1.1) Activated Partial Thromboplast Time 28 SEC (24-38) Sodium Level 144 mmol/L (136-145) Potassium Level 3.7 mmol/L (3.5-5.1) Chloride Level 105 mmol/L (98-107) Carbon Dioxide Level 29 mmol/L (21-32) Anion Gap 10 (6-14) Blood Urea Nitrogen 16 mg/dL (7-20) Creatinine 1.0 mg/dL (0.6-1.0) Estimated GFR (Cockcroft-Gault) 66.5 BUN/Creatinine Ratio 16 (6-20) Glucose Level 118 mg/dL (70-99) Calcium Level 9.2 mg/dL (8.5-10.1) Magnesium Level 2.2 mg/dL (1.8-2.4) Total Bilirubin 0.5 mg/dL (0.2-1.0) Aspartate Amino Transf (AST/SGOT) 14 U/L (15-37) Alanine Aminotransferase (ALT/SGPT) 17 U/L (14-59) Alkaline Phosphatase 51 U/L (46-116) Troponin I Quantitative < 0.017 ng/mL (0.000-0.055) Total Protein 7.2 g/dL (6.4-8.2) Albumin 3.5 g/dL (3.4-5.0) Albumin/Globulin Ratio 0.9 (1.0-1.7) Brief Hospital Course Ms. Waite is a 68 old [sex] who presented with [ ] HIstory of Present Illness 68-year-old female, obese BMI 38, history of hypertension on meds and is compliant, sent in by case monitor today Monday after having an eye exam for blurring of vision, bilateral lasted 5 hours from 5 PM to 10 PM yesterday. She had cataract surgery 1 week ago, she had some blurry of vision of both eyes but describes some fuzzy cotton ball on the left eye - the site of cataract surgery. Ophtha exam apparently was expected findings post cataract sx. The case monitor wanted to r./o TIA hence the referral here Neuro exam is nonfocal, she is seeing clearly now. She is severely claustrophobic, requests an open MRI, and also wants to be admitted. Asks me to sedate her. NO metallic objects, CT head and CXR and VS and labs ok COURSE; SHe feels better, she is torn between waiting for neurology or just doing the open MRI as outpatient. Otherwise in any case, I have left Rx for open MRI on chart . Discharge Information Condition at Discharge: Improved, Stable Scheduled Amlodipine Besylate (Amlodipine Besylate) 10 Mg Tablet, 1 TAB PO DAILY, #30 Ref 5 (Reported) Entered as Reported by: YURI BOYLE on 08/06/14733 Last Action: Continued on 05/04/191327 by ARLENE CARTAGENA Duloxetine Hcl (Cymbalta) 60 Mg Capsule., 1 CAP PO DAILY, #90 Ref 3 (Reported) Entered as Reported by: YURI BOYLE on 08/06/14733 Last Action: Converted on 05/04/191327 by ARLENE CARTAGENA Metoprolol Tartrate (Metoprolol Tartrate) 25 Mg Tablet, 25 MG PO BID for FOR HYPERTENSION, #60 Ref 0 (Reported) Entered as Reported by: YURI BOYLE on 08/06/14733 Last Action: Continued on 05/04/191327 by ARLENE CARTAGENA Omeprazole (Omeprazole) 40 Mg Capsule., 1 CAP PO DAILY, #30 Ref 3 (Reported) Entered as Reported by: YURI BOYLE on 08/06/14733 Last Action: Converted on 05/04/191327 by ARLENE CARTAGENA Potassium Chloride (Potassium Chloride) 10 Meq Capsule.er, 1 CAP PO DAILY, #90 Ref 1 (Reported) Entered as Reported by: YURI BOYLE on 08/06/14733 Last Action: Continued on 05/04/191327 by ARLENE CARTAGENA Simvastatin (Simvastatin) 20 Mg Tablet, 20 MG PO DAILY for FOR CHOLESTEROL, #30 Ref 0 (Reported) Entered as Reported by: YURI BOYLE on 08/06/14733 Last Action: Converted on 05/04/191327 by ARLENE CARTAGENA Scheduled PRN Tramadol Hcl (Tramadol Hcl) 50 Mg Tablet, 50 MG PO DAILY PRN for PAIN, Ref 0 (Reported) Entered as Reported by: YURI BOYLE on 08/06/14733 Last Action: Converted on 05/04/191327 by ARLENE CARTAGENA Miscellaneous Medications Acetaminophen (Acetaminophen) 500 Mg Tablet, 500 MG PO, (Reported) Entered as Reported by: YURI BOYLE on 08/06/14733 Last Action: Converted on 05/04/191327 by ARLENE CARTAGENA Cholecalciferol (Vitamin D3) (Vitamin D) 1,000 Unit Capsule, 1,000 UNIT PO, (Reported) Entered as Reported by: YURI BOYLE on 08/06/14733 Last Action: Converted on 05/04/191327 by ARLENE JOHNSON MD May 05, 2019 11:28
--- NOTE | 2019-05-05 14:07 | PDOC2 ---
NEUROLOGY CONSULT Date of Admission Date of Admission DATE: 05/05/19 TIME: 13:59 Reason for Consult Reason for Consult: vision loss Referring Physician Referring Physician: Dr. Velez PCP: Dr. Carrasquillo Source Source: Chart review, Patient History of Present Illness History of Present Illness The patient is a 68-year-old right-handed female who had cataract surgery last week. 2 days ago she had about 2 or 3 hours of bilateral vision loss. She had just started on a new blood pressure medication. She saw Dr. Nino, her toy electric train repairer, who found no acute ocular problems. She feels fine now. She does complain of what sounds like pulsatile tinnitus, which has been present for several years. She also has a long history of sinus headaches. There is no history of stroke, seizure, or head injury. Past Medical History Cardiovascular: HTN, Hyperlipidemia Past Surgical History Past Surgical History: Cataract Removal Family History Family History: CAD Social History Social History , retired, no alcohol or tobacco Current Medications Current Medications Current Medications Amlodipine Besylate (Norvasc) 10 mg DAILY PO Last administered on 05/05/19at 08:38; Start 05/04/19 at 15:00; Stop 05/05/19 at 13:26; Status DC Metoprolol Tartrate (Lopressor) 25 mg BID PO Last administered on 05/05/19at 08:37; Start 05/04/19 at 21:00; Stop 05/05/19 at 13:26; Status DC Potassium Chloride (Klor-Con) 10 meq DAILY PO Last administered on 05/05/19at 08:37; Start 05/04/19 at 15:00; Stop 05/05/19 at 13:26; Status DC Duloxetine HCl (Cymbalta) 60 mg DAILY PO Last administered on 05/05/19at 08:38; Start 05/04/19 at 15:00; Stop 05/05/19 at 13:26; Status DC Pantoprazole Sodium (Protonix) 40 mg DAILYAC PO Last administered on 05/05/19at 08:39; Start 05/04/19 at 15:00; Stop 05/05/19 at 13:26; Status DC Simvastatin (Zocor) 20 mg HS PO Last administered on 05/04/19at 21:36; Start 05/04/19 at 21:00; Stop 05/05/19 at 13:26; Status DC Tramadol HCl (Ultram) 50 mg PRN DAILY PRN PO PAIN Last administered on 05/05/19at 08:43; Start 05/04/19 at 13:45; Stop 05/05/19 at 13:26; Status DC Acetaminophen (Tylenol) 500 mg PRN Q6HRS PRN PO HEADACHE / TEMP; Start 05/04/19 at 13:30; Stop 05/05/19 at 13:26; Status DC Vitamin D (Vitamin D3) 1,000 unit DAILY PO Last administered on 05/05/19at 08:37; Start 05/04/19 at 15:00; Stop 05/05/19 at 13:26; Status DC Zolpidem Tartrate (Ambien) 5 mg PRN QHS PRN PO INSOMNIA; Start 05/04/19 at 13:30; Stop 05/05/19 at 13:26; Status DC Acetaminophen/ Hydrocodone Bitart (Lortab 5/325) 1 tab PRN Q4HRS PRN PO MODERATE PAIN; Start 05/04/19 at 14:00; Stop 05/05/19 at 13:26; Status DC Clonidine HCl (Catapres) 0.1 mg PRN Q1HR PRN PO HYPERTENSION; Start 05/04/19 at 14:00; Stop 05/05/19 at 13:26; Status DC Ondansetron HCl (Zofran) 4 mg PRN Q6HRS PRN IV NAUSEA/VOMITING; Start 05/04/19 at 14:00; Stop 05/05/19 at 13:26; Status DC Lorazepam (Ativan Inj) 2 mg 1X ONCE IV ; Start 05/04/19 at 14:45; Stop 05/04/19 at 14:46; Status DC Losartan Potassium (Cozaar) 50 mg DAILY PO Last administered on 05/05/19at 08:39; Start 05/05/19 at 09:00; Stop 05/05/19 at 13:26; Status DC Active Scripts Active Reported Vitamin D (Cholecalciferol (Vitamin D3)) 1,000 Unit Capsule 1,000 Unit PO Cymbalta (Duloxetine Hcl) 60 Mg Capsule.dr 1 Cap PO DAILY Metoprolol Tartrate 25 Mg Tablet 25 Mg PO BID Acetaminophen 500 Mg Tablet 500 Mg PO Omeprazole 40 Mg Capsule.dr 1 Cap PO DAILY Simvastatin 20 Mg Tablet 20 Mg PO DAILY Amlodipine Besylate 10 Mg Tablet 1 Tab PO DAILY Tramadol Hcl 50 Mg Tablet 50 Mg PO DAILY PRN Potassium Chloride 10 Meq Capsule.er 1 Cap PO DAILY Allergies Allergies: Coded Allergies: No Known Drug Allergies (Unverified , 08/06/14) ROS Review of System Negative for fever, chills, weight loss, shortness of breath, chest pain, indigestion, hematochezia, melena, and dysuria. Full 14-point review of systems is negative. Physical Exam Physical Examination General: Well-developed, well-nourished black female in no acute distress HEENT: Normocephalic and�atraumatic. �Temporal arteries�pulsatile and nontender.�Fundoscopic exam unremarkable Neck: Supple without bruit, no meningismus� Musculoskeletal: Stability:�see neurologic. Gait exam:�see neurologic. Tone:�see neurologic.�Stre ngth:�see neurologic.� Neurological: Mental Status:�intact, orientation, memory, attention span/concentration, language, fund of knowledge normal. Cranial Nerves:�Pupils equal and reactive to light, extraocular movements are�intact, visual vyas are full to confrontation. Facial sensation is normal. There is no facial asymmetry. Vestibulo-ocular reflex is intact. Palate elevates and tongue protrudes in midline. All other cranial related problems are negative except as mentioned before.�Reflexes:�2+ and symmetric with flexor plantar responses. Motor:�5/5 strength with normal tone and bulk. Coordination:�Finger-nose finger and heel-t o-gee testing are normal. Rapid alternating movements and fine finger movements are intact. Gait:�Normal, including tandem. Sensory:�Normal pinprick, vibration, light touch, proprioception.� Vitals VITALS Vital Signs Date Time Temp Pulse Resp B/P (MAP) Pulse Ox O2 Delivery O2 Flow Rate FiO2 05/05/19 11:00 98.5 55 18 150/66 (94) 96 Room Air 98.5 05/05/19 09:51 2.0 Labs Labs Laboratory Tests Test 05/04/19 12:40 White Blood Count 6.8 x10^3/uL (4.0-11.0) Red Blood Count 4.90 x10^6/uL (3.50-5.40) Hemoglobin 13.2 g/dL (12.0-15.5) Hematocrit 40.2 % (36.0-47.0) Mean Corpuscular Volume 82 fL (79-100) Mean Corpuscular Hemoglobin 27 pg (25-35) Mean Corpuscular Hemoglobin Concent 33 g/dL (31-37) Red Cell Distribution Width 15.9 % (11.5-14.5) Platelet Count 252 x10^3/uL (140-400) Neutrophils (%) (Auto) 69 % (31-73) Lymphocytes (%) (Auto) 22 % (24-48) Monocytes (%) (Auto) 5 % (0-9) Eosinophils (%) (Auto) 4 % (0-3) Basophils (%) (Auto) 1 % (0-3) Neutrophils # (Auto) 4.7 x10^3/uL (1.8-7.7) Lymphocytes # (Auto) 1.5 x10^3/uL (1.0-4.8) Monocytes # (Auto) 0.4 x10^3/uL (0.0-1.1) Eosinophils # (Auto) 0.2 x10^3/uL (0.0-0.7) Basophils # (Auto) 0.1 x10^3/uL (0.0-0.2) Prothrombin Time 12.9 SEC (11.7-14.0) Prothromb Time International Ratio 1.0 (0.8-1.1) Activated Partial Thromboplast Time 28 SEC (24-38) Sodium Level 144 mmol/L (136-145) Potassium Level 3.7 mmol/L (3.5-5.1) Chloride Level 105 mmol/L (98-107) Carbon Dioxide Level 29 mmol/L (21-32) Anion Gap 10 (6-14) Blood Urea Nitrogen 16 mg/dL (7-20) Creatinine 1.0 mg/dL (0.6-1.0) Estimated GFR (Cockcroft-Gault) 66.5 BUN/Creatinine Ratio 16 (6-20) Glucose Level 118 mg/dL (70-99) Calcium Level 9.2 mg/dL (8.5-10.1) Magnesium Level 2.2 mg/dL (1.8-2.4) Total Bilirubin 0.5 mg/dL (0.2-1.0) Aspartate Amino Transf (AST/SGOT) 14 U/L (15-37) Alanine Aminotransferase (ALT/SGPT) 17 U/L (14-59) Alkaline Phosphatase 51 U/L (46-116) Troponin I Quantitative < 0.017 ng/mL (0.000-0.055) Total Protein 7.2 g/dL (6.4-8.2) Albumin 3.5 g/dL (3.4-5.0) Albumin/Globulin Ratio 0.9 (1.0-1.7) Images Images CT brain without contrast. HISTORY: Episode of vision loss yesterday, now resolved CT scan of brain was done without contrast. There is no intracranial hemorrhage or subdural hematoma. Ventricles are normal in size. There is no mass or shift of the midline. An acute CVA is not identified. Visualized sinuses are clear. IMPRESSION: 1. No intracranial hemorrhage or acute finding noted. Carotids: Radiology report is pending, by my view, carotid studies are normal Assessment/Plan Assessment/Plan Impression: Altered vision loss is very unlikely to be related to cerebrovascular disease, and usually is due to either intraocular problem or, most likely in this case, global systemic problems such as fluctuation of blood pressure. There is no evidence of stroke. Recommendations: I recommend a brain MRI for completeness, but the patient is intensely claustrophobic and I think the risks outweigh the benefits of keeping her here to do MRI under anesthesia. She has been intolerant of open MRI in the past so I suggested that she check in with her primary physician to have this arranged as an outpatient or alternatively she could contact my office. Daily aspirin 81 mg daily. She could stop this if the MRI is negative. Follow-up with her toy electric train repairer. Follow-up with neurology as needed. Okay for discharge. Thank you for letting me help with the patient's care. NONI ESCOBAR MD May 05, 2019 14:07
[2019-05-05] MEDS ORDERED: ASPIRIN 325 MG TABLET PO SCH (14:15)
--- NOTE | 2019-05-06 08:01 | EKG ---
[facility] [address] [place] [address] Test Date: 2019-05-04 Test Time: 12:38:54 Pat Name: FELECIA SHELTON Department: Room: Gender: F Match Up Person: : 1950 Requested By: VICKEY STAHL Order Number: [id number] Reading MD: Measurements Intervals Bell Rate: 77 P: 33 CT: 164 QRS: -16 QRSD: 90 T: 17 QT: 372 QTc: 423 Interpretive Statements SINUS RHYTHM LEFTWARD AXIS LEFT VENTRICULAR HYPERTROPHY QRS(T) CONTOUR ABNORMALITY CONSIDER ANTEROLATERAL MYOCARDIAL DAMAGE ABNORMAL ECG RI6.01 No previous ECG available for comparison
--- NOTE | 2019-05-06 10:34 | RAD ---
Carotid doppler ultrasound History: Visual impairment, TIA Multiple grayscale, color, and duplex spectral analysis waveform sonographic images were acquired of the carotid, subclavian, and vertebral arteries. Comparison: None Findings: RIGHT: PSV cm/sec EDV cm/sec Common carotid artery 73 10 Maximal internal carotid artery 58 13 External carotid artery 92 Vertebral artery 52 ICA/CCA ratio 0.79 LEFT: PSV cm/sec EDV cm/sec Common carotid artery 80 12 Maximum internal carotid artery 68 17 External carotid artery 53 Vertebral artery 55 ICA/CCA ratio 0.85 Velocities used to determine stenosis are known to correlate with NASCET angiographic criteria. There is antegrade flow in the bilateral vertebral arteries. Right internal carotid artery is tortuous. No significant stenosis is demonstrated on grayscale or color images. There is very minimal plaque such as of the left carotid bulb. Impression: 1. There is no evidence of a hemodynamically significant stenosis. Electronically signed by: Adrian Jimenes MD (05/06/2019 10:31 AM) [id number]
== END 2019-05-05 12:51 | disposition home or self-care (01) ==
LOC: ER 12:09 → INTOOBSV 13:30 → 6 SOUTH 13:30
PROVIDERS: ADMIT Internal Medicine; ATTEND Internal Medicine
DX: G45.9 Transient cerebral ischemic attack, unspecified (principal); K29.70 Gastritis, unspecified, without bleeding; R07.2 Precordial pain; E78.00 Pure hypercholesterolemia, unspecified; I10 Essential (primary) hypertension; H26.9 Unspecified cataract; E66.9 Obesity, unspecified; Z68.38 Body mass index [BMI] 38.0-38.9, adult; H54.3 Unqualified visual loss, both eyes; F40.240 Claustrophobia; Z79.899 Other long term (current) drug therapy; Z82.49 Family history of ischemic heart disease and other diseases of the circulatory system
CPT/HCPCS: 36415; 70450; 71046; 80053; 83735; 84484; 85025; 85610; 85730; 93005; 93880; 99284; G0378; G0379; 99285-25

== ENCOUNTER → 2019-09-19 | Outpatient (CLI) | payer MEDICARE ==
[~2019-09-19] MED LIST changes: +OMEP40CA45 PO; -OMEP40CA5 PO; +SIMV20TA18 PO; -SIMV20TA3 PO
--- NOTE | 2019-09-20 16:45 | RAD ---
DATE: 09/19/2019 EXAM: MAMMO ALISON SCREENING BILATERAL HISTORY: Routine screening COMPARISON: 01/11/2012, 03/07/2013, 04/09/2014, 07/24/2017, 09/12/2018 mammographic exams This study was interpreted with the benefit of Computerized Aided Detection (CAD). Breast Density: SCATTERED The breast parenchyma shows scattered fibroglandular densities. Breast parenchyma level B. FINDINGS: Benign-appearing lymph nodes are present. Right outer breast intramammary lymph node or other benign finding is stable compared to prior exams. No suspicious calcifications, new masses or distortion. IMPRESSION: Stable BI-RADS CATEGORY: 1 NEGATIVE RECOMMENDED FOLLOW-UP: 12M 12 MONTH FOLLOW-UP PQRS compliance statement: Patient information was entered into a reminder system with a target due date for the next mammogram. Mammography is a sensitive method for finding small breast cancers, but it does not detect them all and is not a substitute for careful clinical examination. A negative mammogram does not negate a clinically suspicious finding and should not result in delay in biopsying a clinically suspicious abnormality. "Our facility is accredited by the [employer] Mammography [employer]."
== END | disposition home or self-care (01) ==
LOC: MAMMO 13:49
PROVIDERS: ATTEND Family Medicine
DX: Z12.31 Encounter for screening mammogram for malignant neoplasm of breast (principal)
CPT/HCPCS: 77063; 77067

== ENCOUNTER 2019-12-19 09:55 | Emergency (ER) | payer MEDICARE ==
[~2019-12-19] VITALS: Ht 165.1 cm; Wt 100.0 kg
[2019-12-19] MEDS ORDERED: IV NORMAL SALINE 1000ML BAG 1,000 ML IV SCH (10:12)
[2019-12-19] MEDS ORDERED: ONDANSETRON PF 4 MG/2 ML VIAL. IVP ONE (10:15)
--- NOTE | 2019-12-19 10:23 | PHYS DOC ---
Past Medical History Past Medical History: High Cholesterol, Hypertension Additional Past Medical Histor: gastritis Past Surgical History: Other Additional Past Surgical Histo: ABD MESH, cataract Smoking Status: Never Smoker Alcohol Use: None Drug Use: None Adult General Chief Complaint Chief Complaint: FLANK PAIN HPI HPI Patient is a 69 year old female who presents with right sided abdominal pain that wraps around to her right back. Patient states it started last night. She states she began vomiting this morning. She states pain is sharp and shooting. She rates her pain 10 out of 10. She states that the tramadol earlier this morning. Patient denies diarrhea, constipation, fever, dysuria, hematuria, chest pain, shortness of air, headache, numbness or tingling, dizziness, weakness, visual changes. Review of Systems Review of Systems GI: right sided abdominal pain, nausea, vomiting, denies bloody stools or diarrhea [] Musculoskeletal: Right flank back pain or joint pain [] All other systems were reviewed and found to be within normal limits, except as documented in this note. Current Medications Current Medications Current Medications Medications (Trade) Dose Ordered Sig/Kari Start Time Stop Time Status Last Admin Dose Admin Famotidine (Pepcid Vial) 20 mg 1X ONCE 12/19/19 12:15 12/19/19 12:16 DC 12/19/19 12:30 20 MG Fentanyl Citrate (Fentanyl 2ml Vial) 50 mcg 1X ONCE 12/19/19 10:30 12/19/19 10:31 DC 12/19/19 10:36 50 MCG Ketorolac Tromethamine (Toradol 30mg Vial) 30 mg 1X ONCE 12/19/19 12:15 12/19/19 12:16 DC 12/19/19 12:31 30 MG Ondansetron HCl (Zofran) 4 mg 1X ONCE 12/19/19 10:15 12/19/19 10:16 DC 12/19/19 10:36 4 MG Orphenadrine Citrate (Norflex) 60 mg 1X ONCE 12/19/19 12:15 12/19/19 12:16 DC 12/19/19 12:31 60 MG Sodium Chloride 1,000 ml @ 1,000 mls/hr Q1H 12/19/19 10:12 12/19/19 11:11 DC 12/19/19 10:36 1,000 MLS/HR Allergies Allergies Allergies Coded Allergies Type Severity Reaction Last Updated Verified No Known Drug Allergies 10/29/14 No Physical Exam Physical Exam Constitutional: Well developed, well nourished, no acute distress, non-toxic appearance. [] HENT: Normocephalic, atraumatic, bilateral external ears normal, oropharynx moist, no oral exudates, nose normal. [] Eyes: PERRLA, EOMI, conjunctiva normal, no discharge. [] Neck: Normal range of motion, no tenderness, supple, no stridor. [] Cardiovascular:Heart rate regular rhythm, no murmur [] Lungs & Thorax: Bilateral breath sounds clear to auscultation [] Abdomen: Bowel sounds normal, soft, right mid tenderness, no masses, no pulsatile masses. [] Skin: Warm, dry, no erythema, no rash. [] Back: No tenderness, no CVA tenderness. [] Extremities: No tenderness, no cyanosis, no clubbing, ROM intact, no edema. [] Neurologic: Alert and oriented X 3, normal motor function, normal sensory function, no focal deficits noted. [] Psychologic: Affect normal, judgement normal, mood normal. [] Current Patient Data Vital Signs Vital Signs Date Time Temp Pulse Resp B/P (MAP) Pulse Ox O2 Delivery O2 Flow Rate FiO2 12/19/19 11:06 19 96 Room Air 12/19/19 10:02 97.9 102 173/89 (117) 97.9 Lab Values Laboratory Tests Test 12/19/19 10:09 12/19/19 10:20 Urine Collection Type Unknown Urine Color Yellow Urine Clarity Clear Urine pH 8.0 (<5.0-8.0) Urine Specific [place] 1.010 (1.000-1.030) Urine Protein Negative mg/dL (NEG-TRACE) Urine Glucose (UA) Negative mg/dL (NEG) Urine Ketones (Stick) Negative mg/dL (NEG) Urine Blood Negative (NEG) Urine Nitrite Negative (NEG) Urine Bilirubin Negative (NEG) Urine Urobilinogen Dipstick 0.2 mg/dL (0.2 mg/dL) Urine Leukocyte Esterase Negative (NEG) Urine RBC 1-2 /HPF (0-2) Urine WBC Occ /HPF (0-4) Urine Squamous Epithelial Cells Many /LPF Urine Bacteria 0 /HPF (0-FEW) Urine Mucus Slight /LPF White Blood Count 6.9 x10^3/uL (4.0-11.0) Red Blood Count 5.27 x10^6/uL (3.50-5.40) Hemoglobin 14.0 g/dL (12.0-15.5) Hematocrit 43.1 % (36.0-47.0) Mean Corpuscular Volume 82 fL (79-100) Mean Corpuscular Hemoglobin 27 pg (25-35) Mean Corpuscular Hemoglobin Concent 32 g/dL (31-37) Red Cell Distribution Width 15.4 % (11.5-14.5) H Platelet Count 240 x10^3/uL (140-400) Neutrophils (%) (Auto) 72 % (31-73) Lymphocytes (%) (Auto) 18 % (24-48) L Monocytes (%) (Auto) 5 % (0-9) Eosinophils (%) (Auto) 5 % (0-3) H Basophils (%) (Auto) 1 % (0-3) Neutrophils # (Auto) 5.0 x10^3/uL (1.8-7.7) Lymphocytes # (Auto) 1.3 x10^3/uL (1.0-4.8) Monocytes # (Auto) 0.4 x10^3/uL (0.0-1.1) Eosinophils # (Auto) 0.3 x10^3/uL (0.0-0.7) Basophils # (Auto) 0.0 x10^3/uL (0.0-0.2) Sodium Level 141 mmol/L (136-145) Potassium Level 3.4 mmol/L (3.5-5.1) L Chloride Level 102 mmol/L (98-107) Carbon Dioxide Level 30 mmol/L (21-32) Anion Gap 9 (6-14) Blood Urea Nitrogen 8 mg/dL (7-20) Creatinine 0.9 mg/dL (0.6-1.0) Estimated GFR (Cockcroft-Gault) 74.9 BUN/Creatinine Ratio 9 (6-20) Glucose Level 110 mg/dL (70-99) H Calcium Level 8.8 mg/dL (8.5-10.1) Total Bilirubin 0.7 mg/dL (0.2-1.0) Aspartate Amino Transferase (AST) 20 U/L (15-37) Alanine Aminotransferase (ALT) 27 U/L (14-59) Alkaline Phosphatase 67 U/L (46-116) Troponin I Quantitative < 0.017 ng/mL (0.000-0.055) Total Protein 7.9 g/dL (6.4-8.2) Albumin 3.9 g/dL (3.4-5.0) Albumin/Globulin Ratio 1.0 (1.0-1.7) Laboratory Tests 12/19/19 10:20 Laboratory Tests 12/19/19 10:20 EKG EKG Sinus Rhythm and no STEMI Interpretation Time: [address] Selby Radiology/Procedures Radiology/Procedures [] Impressions: [facility] [address] [place] [address] IMAGING REPORT Signed PATIENT: FELECIA SHELTON ACCOUNT: [id number] : 1950 LOCATION: ER AGE: 69 SEX: F EXAM STATUS: REG ER ORD. PHYSICIAN: PEDRITO HENDRIX APRN REASON: right side abd pain PROCEDURE: CT ABDOMEN PELVIS WO CONTRAST Examination: CT ABDOMEN PELVIS WO CONTRAST History: Right-sided abdominal pain Comparison/Correlation: 08/06/2014 CT abdomen and pelvis with contrast Findings: Axial images of the abdomen and pelvis were obtained without contrast. Sagittal and coronal reformatted images were provided. Lung bases are clear. Left hepatic dome cyst measuring 3.5 cm x 3 cm is present with no suspicious change. Smaller cyst involving the right hepatic dome is also present with no suspicious change in the interval. Spleen, pancreas, and adrenal glands are normal. There are no radiopaque collecting system calculi. No hydronephrosis. Renal contours are unremarkable. No extraluminal gas. No bowel obstruction. Diverticulosis of the colon is present. Appendix appears to present with no inflammatory findings. Intra-abdominal wall mesh material is noted. Uterus is unremarkable. Urinary bladder is unremarkable. Bony structures are unremarkable for the patient's age. Minimal anterolisthesis of L4 in relation L5. Impression: No acute process. Diverticulosis. PQRS Compliance Statement: One or more of the following individualized dose reduction techniques were utilized for this examination: 1. Automated exposure control 2. Adjustment of the mA and/or kV according to patient size 3. Use of iterative reconstruction technique Electronically signed by: Blade Mckeon MD (12/19/2019 11:28 AM) [id number] DICTATED and SIGNED BY: BLADE MCKEON MD DATE: 12/19/19 1128 Course & Med Decision Making Course & Med Decision Making Pertinent Labs and Imaging studies reviewed. (See chart for details) Right sided mid abdominal tenderness with palpation. Abdomen other leary soft and nontender. Alert and oriented. Ambulatory with steady gait. Skin pink warm and dry. Speaks in full clear sentences. Afebrile. Lungs clear to auscultation in all lobes. PERRLA. No CVA tenderness. Blood work unremarkable. Urinalysis shows no infection. CT shows no acute findings. Patient states that the pain medication I gave her does help some patient is a for the aching. Patient states she is happy that everything came back fine but she says there has to be something wrong. She states she refuses to believe that there is nothing wrong. I asked her if she eats done any heavy lifting or any more walking than usual or activity and she states why would my low back be hurting and wrapping around. I stated it's all on how may be lifted and twisted it could be muscle related. I have stated that we can try Toradol and a muscle relaxer before she leaves. Patient states okay. Patient states that the Toradol or Phenergan has helped her pain is down to a 5 out of 10. Patient is discharged home. I have discussed this patient with Dr. Selby. [] Dragon Disclaimer Dragon Disclaimer This electronic medical record was generated, in whole or in part, using a voice recognition dictation system. Departure Departure Impression: Primary Impression: Flank pain Disposition: HOME, SELF-CARE Condition: STABLE Referrals: SOILA MUSTAFA MD (PCP) Patient Instructions: Abdominal Pain (Nonspecific), Flank Pain, [id number] Additional Instructions: Follow up with primary care provider. Drink plenty of fluids. Take medications as prescribed. Scripts Orphenadrine Citrate (ORPHENADRINE CITRATE) 100 Mg Tablet.er 1 TAB PO BID, #20 TAB Prov: PEDRITO HENDRIX [employer] 12/19/19 Hydrocodone/Apap 5-325 (NORCO 5-325 TABLET) 1 Each Tablet 1 TAB PO PRN Q6HRS PRN for PAIN, #10 TAB 0 Refills Prov: PEDRITO HENDRIX APRN 12/19/19 Ondansetron (ONDANSETRON ODT) 4 Mg Tab.rapdis 1 TAB PO PRN Q6-8HRS, #16 TAB Prov: PEDRITO HENDRIX APRN 12/19/19 PEDRITO HENDRIX APRN Dec 19, 2019 10:22
[2019-12-19] MEDS ORDERED: fentaNYL PF VIAL 100 MCG/2 ML VIAL IVP ONE (10:30)
--- NOTE | 2019-12-19 10:44 | EKG ---
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
[2019-12-19 11:02] LABS: BILIRUBIN,URINE NEGATIVE (NEG); CLARITY,URINE CLEAR; COLOR,URINE YELLOW; NITRITE,URINE NEGATIVE (NEG); PROTEIN,URINE NEGATIVE (NEG-TRACE); UROBILINOGEN,URINE 0.2 mg/dL (0.2 mg/dL)
[2019-12-19 11:04] LABS: BASO % 1 % (0-3); EOS # 0.3 x10^3/uL (0.0-0.7); EOS % 5 % (0-3); HEMATOCRIT 43.1 % (36.0-47.0); LYMPH # 1.3 x10^3/uL (1.0-4.8); LYMPH % 18 % (24-48); MEAN CORPUSCULAR HEMOGLOBIN 27 pg (25-35); MEAN CORPUSCULAR HGB CONC 32 g/dL (31-37); MEAN CORPUSCULAR VOLUME 82 fL (79-100); MONO # 0.4 x10^3/uL (0.0-1.1); MONO % 5 % (0-9); NEUT % 72 % (31-73); PLATELET COUNT 240 x10^3/uL (140-400); RED BLOOD COUNT 5.27 x10^6/uL (3.50-5.40); RED CELL DISTRIBUTION WIDTH 15.4 % (11.5-14.5); WHITE BLOOD COUNT 6.9 x10^3/uL (4.0-11.0)
[2019-12-19 11:07] LABS: CALCIUM 8.8 mg/dL (8.5-10.1); CREATININE 0.9 mg/dL (0.6-1.0); GFR 74.9; POTASSIUM 3.4 mmol/L (3.5-5.1)
[2019-12-19 11:13] LABS: ALBUMIN 3.9 g/dL (3.4-5.0); TOTAL BILIRUBIN 0.7 mg/dL (0.2-1.0); TOTAL PROTEIN 7.9 g/dL (6.4-8.2)
[2019-12-19 11:17] LABS: BACTERIA,URINE 0 /HPF (0-FEW); SQUAMOUS EPITHELIAL CELL,UR MANY /LPF; WBC,URINE OCC /HPF (0-4)
--- NOTE | 2019-12-19 11:31 | RAD ---
Examination: CT ABDOMEN PELVIS WO CONTRAST History: Right-sided abdominal pain Comparison/Correlation: 08/06/2014 CT abdomen and pelvis with contrast Findings: Axial images of the abdomen and pelvis were obtained without contrast. Sagittal and coronal reformatted images were provided. Lung bases are clear. Left hepatic dome cyst measuring 3.5 cm x 3 cm is present with no suspicious change. Smaller cyst involving the right hepatic dome is also present with no suspicious change in the interval. Spleen, pancreas, and adrenal glands are normal. There are no radiopaque collecting system calculi. No hydronephrosis. Renal contours are unremarkable. No extraluminal gas. No bowel obstruction. Diverticulosis of the colon is present. Appendix appears to present with no inflammatory findings. Intra-abdominal wall mesh material is noted. Uterus is unremarkable. Urinary bladder is unremarkable. Bony structures are unremarkable for the patient's age. Minimal anterolisthesis of L4 in relation L5. Impression: No acute process. Diverticulosis. PQRS Compliance Statement: One or more of the following individualized dose reduction techniques were utilized for this examination: 1. Automated exposure control 2. Adjustment of the mA and/or kV according to patient size 3. Use of iterative reconstruction technique Electronically signed by: Blade Sheehan MD (12/19/2019 11:28 AM) [id number]
[2019-12-19] MEDS ORDERED: ONDA4TAB12 PO (11:55)
[2019-12-19] MEDS ORDERED: HYDR-3164 PO (11:55)
[2019-12-19] MEDS ORDERED: ORPH100T PO (11:56)
[2019-12-19] MEDS ORDERED: FAMOTIDINE 20 MG/2 ML VIAL IVP ONE (12:15)
[2019-12-19] MEDS ORDERED: ORPHENADRINE CITRATE 60 MG/2 ML VIAL. IM ONE (12:15)
[2019-12-19] MEDS ORDERED: KETOROLAC 30 MG/ML VIAL. IVP ONE (12:15)
[2019-12-19 13:02] VITALS: BP 170/76
== END 2019-12-19 13:09 | disposition home or self-care (01) ==
LOC: ER 09:55
DX: R10.9 Unspecified abdominal pain (principal); R11.2 Nausea with vomiting, unspecified; K57.30 Diverticulosis of large intestine without perforation or abscess without bleeding; E78.00 Pure hypercholesterolemia, unspecified; I10 Essential (primary) hypertension; Z98.890 Other specified postprocedural states
CPT/HCPCS: 36415; 74176; 80053; 81001; 84484; 85025; 93005; 96361; 96372; 96374; 96375; 99285; J1885; J2360; J2405; J3010; J3490; J7030

== ENCOUNTER → 2020-11-05 | Outpatient (CLI) | payer MEDICARE ==
[~2020-11-05] MED LIST changes: +AMLO-187 PO; -AMLO10TA8 PO; +HYDR-3164 PO; +ONDA4TAB12 PO; +ORPH100T PO
--- NOTE | 2020-11-05 16:23 | RAD ---
EXAMINATION: MG BILAT SCREEN+ALISON CLINICAL HISTORY: Routine screening, history of benign biopsy on the left TECHNIQUE: Digital craniocaudal and mediolateral oblique views of the bilateral breasts obtained with 3-D tomosynthesis. COMPARISON: 09/19/2019, 09/12/2018, 07/24/2017 BREAST COMPOSITION: There are scattered areas of fibroglandular density. FINDINGS: No evidence of suspicious mass, calcifications, or areas of architectural distortion. IMPRESSION: No mammographic evidence of malignancy. BI-RADS ASSESSMENT: Category 1: Negative RECOMMENDATION: Return for routine bilateral screening mammogram in one year. PQRS compliance statement - Patient information was entered into a reminder system with a target due date for the next mammogram. "Our facility is accredited by the [employer] Mammography [employer]." Electronically signed by: Ck Kaur DO (11/05/2020 4:21 PM) [id number]
== END ==
LOC: MAMMO 13:30
PROVIDERS: ATTEND Family Medicine
DX: Z12.31 Encounter for screening mammogram for malignant neoplasm of breast (principal)
CPT/HCPCS: 77063; 77067

== ENCOUNTER 2021-03-11 16:59 | Emergency (ER) | payer MEDICARE ==
[~2021-03-11] VITALS: Ht 162.6 cm; Wt 90.3 kg
[~2021-03-11 16:59] MED LIST changes: -OMEP40CA45 PO; +OMEP40CA7 PO
[2021-03-11] MEDS ORDERED: IV NORMAL SALINE 500ML BAG 500 ML IV ONE (17:15)
[2021-03-11] MEDS ORDERED: METOCLOPRAMIDE HCL 10 MG/2 ML VIAL. IVP ONE (17:15)
[2021-03-11] MEDS ORDERED: diphenhydrAMINE 50 MG/ML VIAL IVP ONE (17:15)
--- NOTE | 2021-03-11 17:24 | PHYS DOC ---
Past Medical History Past Medical History: High Cholesterol, Hypertension, Other Additional Past Medical Histor: gastritis (PAUL BOWEN DO) Past Surgical History: Other Additional Past Surgical Histo: ABD MESH, cataract (PAUL BOWEN DO) Smoking Status: Never Smoker Alcohol Use: None Drug Use: None (PAUL BOWEN DO) General Adult EDM: Chief Complaint: HEADACHE HPI: HPI: Patient is a 70 year old female who presented to ER for evaluation of severe headache that she been suffering for the last 3 days. Patient actually started having headache on March 05, she was taken to [facility] when she was found to have high level of carbon monoxide level 32.8. Patient was placed IN hyperbaric chamber but she could not tolerate because it hurt her ear. Patient was admitted there, patient was discharged home 36-hours later. Patient said the gas company came out to her house, checked to make sure that the carbon monoxide level was ok for her to return and it was ok. Patient came home, she continued to have developed a headache. Patient denies any fever, no nausea vomiting. Patient denies any history of headache in the past. Patient denies any fever. Patient do have history of hypertension. Patient denies any slurred speech, no blurry vision. (PAUL BOWEN DO) Review of Systems: Review of Systems: Constitutional: Denies fever or chills. [] Eyes: Denies change in visual acuity. [] HENT: Denies nasal congestion or sore throat. [] Respiratory: Denies cough or shortness of breath. [] Cardiovascular: Denies chest pain or edema. [] GI: Denies abdominal pain, nausea, vomiting, bloody stools or diarrhea. [] : Denies dysuria. [] Musculoskeletal: Denies back pain or joint pain. [] Integument: Denies rash. [] Neurologic: Positive headache, no focal weakness or numbness, no neck pain. Endocrine: Denies polyuria or polydipsia. [] Lymphatic: Denies swollen glands. [] Psychiatric: Denies depression or anxiety. [] (PAUL BOWEN DO) Heart Score: C/O Chest Pain: N/A Risk Factors: Risk Factors: DM, Current or recent (<one month) smoker, HTN, HLP, family history of CAD, obesity. Risk Scores: Score 0 - 3: 2.5% MACE over next 6 weeks - Discharge Home Score 4 - 6: 20.3% MACE over next 6 weeks - Admit for Clinical Observation Score 7 - 10: 72.7% MACE over next 6 weeks - Early Invasive Strategies (PAUL BOWEN DO) Current Medications: Current Medications Medications (Trade) Dose Ordered Sig/Kari Start Time Stop Time Status Last Admin Dose Admin Diphenhydramine HCl (Benadryl) 25 mg 1X ONCE 03/11/21 17:15 03/11/21 17:16 UNV Metoclopramide HCl (Reglan Vial) 10 mg 1X ONCE 03/11/21 17:15 03/11/21 17:16 UNV Sodium Chloride 500 ml @ 500 mls/hr 1X ONCE 03/11/21 17:15 03/11/21 18:14 UNV (PAUL BOWEN DO) Allergies: Allergies: Allergies Coded Allergies Type Severity Reaction Last Updated Verified No Known Drug Allergies 08/06/14 No (PAUL BOWEN DO) Physical Exam: PE: Constitutional: Well developed, well nourished, no acute distress, non-toxic appearance. [] HENT: Normocephalic, atraumatic, bilateral external ears normal, oropharynx moist, no oral exudates, nose normal. [] Eyes: PERRLA, EOMI, conjunctiva normal, no discharge. [] Neck: Normal range of motion, no tenderness, supple, no stridor. [] Cardiovascular:Heart rate regular rhythm, no murmur [] Lungs & Thorax: Bilateral breath sounds clear to auscultation [] Abdomen: Bowel sounds normal, soft, no tenderness, no masses, no pulsatile masses. [] Skin: Warm, dry, no erythema, no rash. [] Back: No tenderness, no CVA tenderness. [] Extremities: No tenderness, no cyanosis, no clubbing, ROM intact, no edema. [] Neurologic: Alert and oriented X 3, normal motor function, normal sensory function, no focal deficits noted. [] Psychologic: Affect normal, judgement normal, mood normal. [] (PAUL BOWEN DO) PE: Constitutional: Well developed, well nourished, no acute distress HENT: Normocephalic, atraumatic Eyes: Conjunctiva normal, no discharge Neck: Normal range of motion, supple Lungs & Thorax: No respiratory distress, equal chest rise and fall Skin: Warm, dry, no erythema, no rash Neurologic: Alert and oriented X 3, speech normal Psychologic: Affect normal, judgment normal (CALIXTO HUFFMAN DO) Current Patient Data: Labs: Laboratory Tests Test 03/11/21 17:27 03/11/21 17:34 White Blood Count 6.6 x10^3/uL Red Blood Count 4.98 x10^6/uL Hemoglobin 13.6 g/dL Hematocrit 40.8 % Mean Corpuscular Volume 82 fL Mean Corpuscular Hemoglobin 27 pg Mean Corpuscular Hemoglobin Concent 33 g/dL Red Cell Distribution Width 16.1 % Platelet Count 264 x10^3/uL Neutrophils (%) (Auto) 75 % Lymphocytes (%) (Auto) 16 % Monocytes (%) (Auto) 6 % Eosinophils (%) (Auto) 2 % Basophils (%) (Auto) 1 % Neutrophils # (Auto) 4.9 x10^3/uL Lymphocytes # (Auto) 1.1 x10^3/uL Monocytes # (Auto) 0.4 x10^3/uL Eosinophils # (Auto) 0.1 x10^3/uL Basophils # (Auto) 0.1 x10^3/uL Sodium Level 142 mmol/L Potassium Level 3.6 mmol/L Chloride Level 106 mmol/L Carbon Dioxide Level 28 mmol/L Anion Gap 8 Blood Urea Nitrogen 6 mg/dL Creatinine 0.9 mg/dL Estimated GFR (Cockcroft-Gault) 74.7 BUN/Creatinine Ratio 7 Glucose Level 111 mg/dL Calcium Level 9.7 mg/dL Magnesium Level 2.2 mg/dL Total Bilirubin 0.7 mg/dL Aspartate Amino Transf (AST/SGOT) 17 U/L Alanine Aminotransferase (ALT/SGPT) 34 U/L Alkaline Phosphatase 61 U/L Troponin I Quantitative < 0.017 ng/mL Total Protein 7.5 g/dL Albumin 3.8 g/dL Albumin/Globulin Ratio 1.0 O2 Saturation 97 % Arterial Blood pH 7.42 Arterial Blood pCO2 at Patient Temp 42 mmHg Arterial Blood pO2 at Patient Temp 99 mmHg Arterial Blood HCO3 27 mmol/L Arterial Blood Base Excess 2 mmol/L Oxyhemoglobin 96.7 % Methemoglobin 0.5 % Carbon Monoxide, Quantitative 0.2 % FiO2 28% Current Medications Medications (Trade) Dose Ordered Sig/Kari Route PRN Reason Start Time Stop Time Status Last Admin Dose Admin Metoclopramide HCl (Reglan Vial) 10 mg 1X ONCE IVP 03/11/21 17:15 03/11/21 17:16 DC 03/11/21 17:55 Diphenhydramine HCl (Benadryl) 25 mg 1X ONCE IVP 03/11/21 17:15 03/11/21 17:16 DC 03/11/21 17:55 Sodium Chloride 500 ml @ 500 mls/hr 1X ONCE IV 03/11/21 17:15 03/11/21 18:14 03/11/21 17:55 Laboratory Tests Test 03/11/21 17:27 White Blood Count 6.6 x10^3/uL Red Blood Count 4.98 x10^6/uL Hemoglobin 13.6 g/dL Hematocrit 40.8 % Mean Corpuscular Volume 82 fL Mean Corpuscular Hemoglobin 27 pg Mean Corpuscular Hemoglobin Concent 33 g/dL Red Cell Distribution Width 16.1 % Platelet Count 264 x10^3/uL Neutrophils (%) (Auto) 75 % Lymphocytes (%) (Auto) 16 % Monocytes (%) (Auto) 6 % Eosinophils (%) (Auto) 2 % Basophils (%) (Auto) 1 % Neutrophils # (Auto) 4.9 x10^3/uL Lymphocytes # (Auto) 1.1 x10^3/uL Monocytes # (Auto) 0.4 x10^3/uL Eosinophils # (Auto) 0.1 x10^3/uL Basophils # (Auto) 0.1 x10^3/uL Sodium Level 142 mmol/L Potassium Level 3.6 mmol/L Chloride Level 106 mmol/L Carbon Dioxide Level 28 mmol/L Anion Gap 8 Blood Urea Nitrogen 6 mg/dL Creatinine 0.9 mg/dL Estimated GFR (Cockcroft-Gault) 74.7 BUN/Creatinine Ratio 7 Glucose Level 111 mg/dL Calcium Level 9.7 mg/dL Magnesium Level 2.2 mg/dL Total Bilirubin 0.7 mg/dL Aspartate Amino Transf (AST/SGOT) 17 U/L Alanine Aminotransferase (ALT/SGPT) 34 U/L Alkaline Phosphatase 61 U/L Total Protein 7.5 g/dL Albumin 3.8 g/dL Albumin/Globulin Ratio 1.0 Current Medications Medications (Trade) Dose Ordered Sig/Kari Route PRN Reason Start Time Stop Time Status Last Admin Dose Admin Metoclopramide HCl (Reglan Vial) 10 mg 1X ONCE IVP 03/11/21 17:15 03/11/21 17:16 DC Diphenhydramine HCl (Benadryl) 25 mg 1X ONCE IVP 03/11/21 17:15 03/11/21 17:16 DC Sodium Chloride 500 ml @ 500 mls/hr 1X ONCE IV 03/11/21 17:15 03/11/21 18:14 ABG: pH: 7.4 pCO2: 41.9 PO2: 98.5 HCO2: 26.5 PCOHb: 0.2%. (PAUL BOWEN DO) EKG: EKG: EKG was done at 5:16 PM, heart rate of 78 bpm, sinus rhythm, no ST segment elevation, leftward axis. (PAUL BOWEN DO) Radiology/Procedures: Radiology/Procedures: [] (PAUL BOWEN DO) Radiology/Procedures: PROCEDURE: CT HEAD WO CONTRAST STUDY: CT head without contrast INDICATION: Headache. COMPARISON: 05/04/2019 TECHNIQUE: Axial CT imaging through the head without the use of intravenous contrast. Sagittal and coronal reformats were obtained. One or more of the following individualized dose reduction techniques were utilized for this examination: 1. Automated exposure control 2. Adjustment of the mA and/or kV according to patient size 3. Use of iterative reconstruction technique. FINDINGS: No acute intracranial hemorrhage. No mass effect, midline shift or hydrocephalus. Maintained verdin-white matter interface. Intracranial calcific atherosclerosis. Parenchymal volume is within normal limits for patient age. Intact calvarium. Normally aerated mastoid air cells. Trace fluid or mucosal thickening at the left aspect of the sphenoid sinus. IMPRESSION: No acute intracranial abnormality by CT. Electronically signed by: MICHELLE MARKHAM MD (03/11/2021 6:06 PM) [facility] (CALIXTO HUFFMAN DO) Course & Med Decision Making: Course & Med Decision Making Pertinent Labs and Imaging studies reviewed. (See chart for details) Patient is a 70-year-old female who was poisoned with carbon monoxide on March 05, 2021. She was admitted at [facility], her carbon monoxide level was 32.8. Patient was treated there, was discharged home on on 03/06/21. Her house was checked to make sure it was safe for her to go home by the [employer]. Patient continues to have a headache so she came back here for evaluation. Patient denies any trouble walking, no chest pain, no dizziness at this time. Her headache is most likely from the side effect of carbon monoxide poisoning. Care was checked out to Dr. Huffman at shift change pending CT scan of the head. (PAUL BOWEN DO) Course & Med Decision Making 1800-signout received from Dr. Bowen for patient with headache. History of carbon monoxide exposure recently. Labs ordered by Dr. Bowen and reviewed. Carbon monoxide within normal limits. Patient pending CT head results. Patient previously treated for pain and discomfort. Patient seen and evaluated myself. Patient reports interval improvement of symptoms. CT head without acute process. Patient stable for discharge with outpatient follow-up with PCP/neurology. Neurology referral provided. Discussed findings and plan with patient, who acknowledges understanding and agreement. (CALIXTO HUFFMAN DO) Dragon Disclaimer: Dragon Disclaimer: This electronic medical record was generated, in whole or in part, using a voice recognition dictation system. (PAUL BOWEN DO) Departure Departure Impression: Primary Impression: Headache Qualified Codes: R51.9 - Headache, unspecified Disposition: HOME / SELF CARE / HOMELESS Condition: STABLE Referrals: SOILA MUSTAFA MD (PCP) NONI ESCOBAR MD Patient Instructions: Headache, FAQs Scripts Butalb/Acetaminophen/Caffeine ([id number] [id number]) 1 Each Tablet 1 EACH PO Q6HRS PRN for HEADACHE, #10 TAB Prov: CALIXTO HUFFMAN DO 03/11/21 PAUL BOWEN DO Mar 11, 2021 17:24 CALIXTO HUFFMAN DO Mar 11, 2021 18:15
[2021-03-11 17:37] LABS: BASO # 0.1 x10^3/uL (0.0-0.2); BASO % 1 % (0-3); EOS # 0.1 x10^3/uL (0.0-0.7); EOS % 2 % (0-3); HEMATOCRIT 40.8 % (36.0-47.0); HEMOGLOBIN 13.6 g/dL (12.0-15.5); LYMPH # 1.1 x10^3/uL (1.0-4.8); LYMPH % 16 % (24-48); MEAN CORPUSCULAR HEMOGLOBIN 27 pg (25-35); MEAN CORPUSCULAR HGB CONC 33 g/dL (31-37); MEAN CORPUSCULAR VOLUME 82 fL (79-100); MONO # 0.4 x10^3/uL (0.0-1.1); MONO % 6 % (0-9); NEUT # 4.9 x10^3/uL (1.8-7.7); NEUT % 75 % (31-73); PLATELET COUNT 264 x10^3/uL (140-400); RED BLOOD COUNT 4.98 x10^6/uL (3.50-5.40); RED CELL DISTRIBUTION WIDTH 16.1 % (11.5-14.5); WHITE BLOOD COUNT 6.6 x10^3/uL (4.0-11.0)
[2021-03-11 17:42] LABS: CALCIUM 9.7 mg/dL (8.5-10.1); CREATININE 0.9 mg/dL (0.6-1.0); GFR 74.7; POTASSIUM 3.6 mmol/L (3.5-5.1)
[2021-03-11 17:47] LABS: ALBUMIN 3.8 g/dL (3.4-5.0); MAGNESIUM 2.2 mg/dL (1.8-2.4); TOTAL BILIRUBIN 0.7 mg/dL (0.2-1.0); TOTAL PROTEIN 7.5 g/dL (6.4-8.2)
[2021-03-11 17:56] LABS: BASE EXCESS COOX 2 mmol/L (-3-3); HCO3 COOX 27 mmol/L (21-28); METHEMOGLOBIN 0.5 % (0.0-1.9); OXYHEMOGLOBIN 96.7 %; PCO2 COOX 42 mmHg (35-46); PO2 COOX 99 mmHg (65-108); SAT O2 COOX 97 % (92-99)
--- NOTE | 2021-03-11 18:08 | RAD ---
STUDY: CT head without contrast INDICATION: Headache. COMPARISON: 05/04/2019 TECHNIQUE: Axial CT imaging through the head without the use of intravenous contrast. Sagittal and co shaji reformats were obtained. One or more of the following individualized dose reduction techniques were utilized for this examinat ion: 1. Automated exposure control 2. Adjustment of the mA and/or kV according to patient size 3. Use of iterative reconstruction technique. FINDINGS: No acute intracranial hemorrhage. No mass effect, midline shift or hydrocephalus. Maintained verdin-whi te matter interface. Intracranial calcific atherosclerosis. Parenchymal volume is within normal limits for patient age. Intact calvarium. Normally aerated mastoid air cells. Trace fluid or mucosal thickening at the left a spect of the sphenoid sinus. IMPRESSION: No acute intracranial abnormality by CT. Electronically signed by: MICHELLE MARKHAM MD (03/11/2021 6:06 PM) [facility]
[2021-03-11] MEDS ORDERED: BUTA1TAB23 PO (18:15)
[2021-03-11 18:21] VITALS: BP 153/67
--- NOTE | 2021-03-11 23:52 | EKG ---
[facility] [address] [place] [address] Test Date: 2021-03-11 Test Time: 17:16:06 Pat Name: FELECIA SHELTON Department: Room: Gender: F Patient Account Representative: : 1950 Requested By: PAUL BOWEN Order Number: [id number] Reading MD: Measurements Intervals [place] Rate: 78 P: 41 HI: 154 QRS: -15 QRSD: 86 T: 13 QT: 380 QTc: 437 Interpretive Statements SINUS RHYTHM LEFTWARD AXIS OTHERWISE NORMAL ECG RI6.02 No previous ECG available for comparison
== END 2021-03-11 18:45 | disposition home or self-care (01) ==
LOC: ER 16:59
DX: R51.9 Headache, unspecified (principal); E78.00 Pure hypercholesterolemia, unspecified; I10 Essential (primary) hypertension
CPT/HCPCS: 36415; 70450; 80053; 82805; 83735; 84484; 85025; 93005; 96374; 96375; 99285; J1200; J2765; J7040; 96361

== ENCOUNTER → 2021-06-29 | Outpatient (CLI) | payer MEDICARE ==
[~2021-06-29] MED LIST changes: +BUTA1TAB23 PO
--- NOTE | 2021-06-29 16:23 | KCIC ---
Examination: Left Lower Extremity Venous Doppler Ultrasound History: Left lower extremity edema Comparison: None Procedure: Thurston scale, color flow 2D and spectal waveform analysis images are obtained with and witho ut compression in the area of the common femoral vein, superficial femoral vein - femoral vein juncti on, main femoral vein (superficial femoral vein) and popliteal vein. Veins of the proximal calf are a lso imaged. Findings: There is normal duplex flow, color flow and compressibility of all visualized vein segments. No evide nce of deep venous thrombus is present. Impression: No evidence of DVT in the left lower extremity venous system. Electronically signed by: Rigo Todd MD (06/29/2021 4:21 PM) [id number]
--- NOTE | 2021-06-30 09:21 | KCIC ---
DXA BONE DENSITY AXIAL History: Postmenopausal screening Comparison: None. TECHNIQUE: Dual energy x-ray absorptiometry of the lumbar spine and left hip was performed. T-score o f average bone mineral density based was calculated based on standard deviations above or below the e xpected young adult normal value. Diagnostic definitions were established by the [employer] at[employer]. FINDINGS: The average bone mineral density associated with L1-L4 is 1.093 g/cm^2, corresponding with a T-score of 0.4. The average total bone mineral density associated with left hip is 1.017 g/cm^2, corresponding with a T-score of 0.6. Refer to the worksheets for full detail. IMPRESSION: 1. Normal. Average bone mineral density yields a T-score of -1.0 or greater. Fracture risk is low. Electronically signed by: Marino Morrow MD (06/30/2021 9:18 AM) [id number]
== END ==
LOC: KCIC DEXA 14:42
PROVIDERS: ATTEND Family Medicine
DX: R60.0 Localized edema (principal); N95.9 Unspecified menopausal and perimenopausal disorder
CPT/HCPCS: 77080; 93971

== ENCOUNTER 2021-11-11 23:42 | Observation (INO) | payer MEDICARE ==
[~2021-11-11] VITALS: Ht 162.6 cm; Wt 91.5 kg
[~2021-11-11 23:42] MED LIST changes: -DULO60CA6 PO; +DULO60CA7 PO
--- NOTE | 2021-11-12 00:15 | PHYS DOC ---
Past Medical History Past Medical History: Arthritis, Constipation, Depression, GERD, High Cho lesterol, Hypertension, Other Additional Past Medical Histor: gastritis,OA,DDD,CHRONIC PAIN Past Surgical History: Other Additional Past Surgical Histo: ABD MESH, cataract Smoking Status: Never Smoker Alcohol Use: None Drug Use: None General Adult EDM: Chief Complaint: ABDOMINAL PAIN HPI: HPI: Patient is a 71-year-old female presenting via POV with son for abdominal pain. This is an acute on chronic issue. Reports she has longtime history of gastritis and other stomach issues but reports new abdominal pain started approximately 5 hours prior to arrival. Reports pain started several hours after eating a takeout meal from local grocery store consisting of roast beef and mashed potatoes. No other family members ate this meal, she thinks it was fully cooked. Nonetheless, she reports development of abdominal bloating, generalized abdominal pain that is sharp and constant with associated nausea. She tried taking Pepto-Bismol without relief prompting her to come in for evaluation. Patient reports she has history of abdominal hernia surgery with mesh placement otherwise no other intra-abdominal surgeries. Also discloses that last bowel movement was yesterday which is abnormal for her as she typically goes daily. She is still passing gas. Review of Systems: Review of Systems: Fourteen body systems of review of systems have been reviewed. See HPI for pertinent positives and negative responses, other leary all other systems are negative, non-pertinent or non-contributory Heart Score: C/O Chest Pain: No Risk Factors: Risk Factors: DM, Current or recent (<one month) smoker, HTN, HLP, family hist ory of CAD, obesity. Risk Scores: Score 0 - 3: 2.5% MACE over next 6 weeks - Discharge Home Score 4 - 6: 20.3% MACE over next 6 weeks - Admit for Clinical Observation Score 7 - 10: 72.7% MACE over next 6 weeks - Early Invasive Strategies Allergies: Allergies: Allergies Coded Allergies Type Severity Reaction Last Updated Verified No Known Drug Allergies 08/06/14 No Physical Exam: PE: Constitutional: Well developed, well nourished, moderate distress due to pain but nontoxic in overall appearance HENT: Normocephalic, atraumatic, bilateral external ears normal, oropharynx moist, no oral exudates, nose normal. Eyes: PERRLA, EOMI, conjunctiva normal, no discharge. Neck: Normal range of motion, no tenderness, supple, no stridor. Cardiovascular: Heart rate regular, sinus rhythm, no murmurs rubs or gallops Lungs & Thorax: Bilateral breath sounds clear to auscultation, tachypneic due to hyperventilation otherwise no obvious respiratory distress Abdomen: High-pitched and infrequent bowel sounds, generalized midline abdominal pain with distention with voluntary guarding present, no rebound, no masses, no pulsatile masses. Nonsurgical abdomen, no peritoneal signs Skin: Warm, dry, no erythema, no rash. Back: No tenderness, no CVA tenderness. Extremities: No tenderness, no cyanosis, no clubbing, ROM intact, no edema. Neurologic: Alert and oriented X 3, grossly normal motor & sensory function, no focal deficits noted. Psychologic: Anxious affect and mood Current Patient Data: Labs: Laboratory Tests Test 11/12/21 00:25 White Blood Count 12.5 x10^3/uL Red Blood Count 5.39 x10^6/uL Hemoglobin 14.5 g/dL Hematocrit 43.1 % Mean Corpuscular Volume 80 fL Mean Corpuscular Hemoglobin 27 pg Mean Corpuscular Hemoglobin Concent 34 g/dL Red Cell Distribution Width 15.6 % Platelet Count 306 x10^3/uL Neutrophils (%) (Auto) 77 % Lymphocytes (%) (Auto) 14 % Monocytes (%) (Auto) 6 % Eosinophils (%) (Auto) 2 % Basophils (%) (Auto) 1 % Neutrophils # (Auto) 9.6 x10^3/uL Lymphocytes # (Auto) 1.8 x10^3/uL Monocytes # (Auto) 0.7 x10^3/uL Eosinophils # (Auto) 0.2 x10^3/uL Basophils # (Auto) 0.1 x10^3/uL Sodium Level 141 mmol/L Potassium Level 3.8 mmol/L Chloride Level 103 mmol/L Carbon Dioxide Level 32 mmol/L Anion Gap 6 Blood Urea Nitrogen 28 mg/dL Creatinine 1.4 mg/dL Estimated GFR (Cockcroft-Gault) 44.7 BUN/Creatinine Ratio 20 Glucose Level 111 mg/dL Lactic Acid Level 1.5 mmol/L Calcium Level 10.1 mg/dL Total Bilirubin 0.8 mg/dL Aspartate Amino Transf (AST/SGOT) 15 U/L Alanine Aminotransferase (ALT/SGPT) 12 U/L Alkaline Phosphatase 57 U/L Troponin I High Sensitivity 6 ng/L Total Protein 8.4 g/dL Albumin 4.0 g/dL Albumin/Globulin Ratio 0.9 Lipase 59 U/L Current Medications Medications (Trade) Dose Ordered Sig/Kari Route PRN Reason Start Time Stop Time Status Last Admin Dose Admin Fentanyl Citrate (Fentanyl 2ml Vial) 50 mcg 1X ONCE IVP 11/12/21 00:30 11/12/21 00:31 DC 11/12/21 00:53 Pantoprazole Sodium (PROTONIX VIAL for IV PUSH) 40 mg 1X ONCE IVP 11/12/21 00:30 11/12/21 00:31 DC 11/12/21 00:50 Multi-Ingredient Mouthwash/Gargle (Gi Cocktail) 20 ml 1X ONCE SWSW 11/12/21 00:30 11/12/21 00:31 DC 11/12/21 00:49 Iohexol (Omnipaque 300 Mg/ml) 60 ml 1X ONCE IV 11/12/21 01:00 11/12/21 01:01 DC 11/12/21 01:04 Info (CONTRAST GIVEN -- Rx MONITORING) 1 each PRN DAILY PRN MC SEE COMMENTS 11/12/21 01:00 11/14/21 00:59 Vital Signs: Vital Signs Date Time Temp Pulse Resp B/P (MAP) Pulse Ox O2 Delivery O2 Flow Rate FiO2 11/12/21 00:01 97.9 99 30 169/82 (111) 96 Room Air 97.9 EKG: EKG: EKG ordered and interpreted by myself 00 50 hours as sinus rhythm at 85 bpm, unremarkable intervals, left axis deviation, no acute ischemic findings, no STEMI Radiology/Procedures: Radiology/Procedures: EXAM: CT ABDOMEN/PELVIS WITH CONTRAST. HISTORY: Epigastric pain. TECHNIQUE: Computed tomography of the abdomen and pelvis was performed after the intravenous administration of Isovue-370. One or more of the following individualized dose reduction techniques were utilized for this examination: 1. Automated exposure control. 2. Adjustment of the mA and/or kV according to patient size. 3. Use of iterative reconstruction technique. COMPARISON: 12/19/2019. FINDINGS: Lung windows through the visualized portions of the bases reveal mild atelectasis. A small right Bochdalek hernia contains only fat. There are atherosclerotic calcifications of the coronary arteries. Bone windows reveal no suspicious lesions. There is grade 1 anterolisthesis at L4-5 from facet osteoarthritis. A cyst in the left hepatic lobe measures 4.0 cm and appears benign. The pancreas, adrenal glands, gallbladder and spleen are unremarkable. The bilateral benign renal cysts measure up to 1.3 cm on the right. There are no pathologically enlarged lymph nodes. There is mild dilatation of the proximal small bowel. No transition point is suspected with thin the infraumbilical region along the inferior margin of mesh repair of the anterior abdominal wall. Left colonic diverticulosis is mild. A small right inguinal hernia contains only fat. IMPRESSION: 1. Small bowel obstruction with transition point along the inferior margin of mesh repair of the anterior abdominal wall. Electronically signed by: Radha Dukes MD (11/12/2021 1:56 AM) [facility] Course & Med Decision Making: Course & Med Decision Making ABCs unremarkable HPI physical exam and comprehensive ER work-up concerning for small bowel obstruction and patient with prior abdominal hernia repair with mesh Patient symptoms improved with ER intervention but still symptomatic. She has high risk for decompensation. Hospitalist and surgeon contacted, both agreed need for admission for continued serial abdominal exams and intervention as indicated Dragon Disclaimer: Dragon Disclaimer: This electronic medical record was generated, in whole or in part, using a voice recognition dictation system. Departure Departure Impression: Primary Impression: Small bowel obstruction Disposition: ADMITTED INPATIENT Admitting Physician: YVONNE (DR TOWNSEND) Condition: STABLE Referrals: SOILA MUSTAFA MD (PCP) AMADOR RUIZ DO Nov 12, 2021 00:15
[2021-11-12] MEDS ORDERED: PANTOPRAZOLE IV PUSH 40 MG VIAL. IVP ONE (00:30)
[2021-11-12] MEDS ORDERED: LIDO:MAALOX 1:1 20 ML SINGLE DOSE. SWSW ONE (00:30)
[2021-11-12] MEDS ORDERED: fentaNYL PF VIAL 100 MCG/2 ML VIAL IVP ONE (00:30)
[2021-11-12 00:38] LABS: BASO # 0.1 x10^3/uL (0.0-0.2); BASO % 1 % (0-3); EOS # 0.2 x10^3/uL (0.0-0.7); EOS % 2 % (0-3); HEMATOCRIT 43.1 % (36.0-47.0); HEMOGLOBIN 14.5 g/dL (12.0-15.5); LYMPH # 1.8 x10^3/uL (1.0-4.8); LYMPH % 14 % (24-48); MEAN CORPUSCULAR HEMOGLOBIN 27 pg (25-35); MEAN CORPUSCULAR HGB CONC 34 g/dL (31-37); MEAN CORPUSCULAR VOLUME 80 fL (79-100); MONO # 0.7 x10^3/uL (0.0-1.1); MONO % 6 % (0-9); NEUT # 9.6 x10^3/uL (1.8-7.7); NEUT % 77 % (31-73); PLATELET COUNT 306 x10^3/uL (140-400); RED BLOOD COUNT 5.39 x10^6/uL (3.50-5.40); RED CELL DISTRIBUTION WIDTH 15.6 % (11.5-14.5); WHITE BLOOD COUNT 12.5 x10^3/uL (4.0-11.0)
[2021-11-12 00:46] LABS: CALCIUM 10.1 mg/dL (8.5-10.1); CREATININE 1.4 mg/dL (0.6-1.0); GFR 44.7; POTASSIUM 3.8 mmol/L (3.5-5.1)
[2021-11-12 00:53] LABS: ALBUMIN/GLOBULIN RATIO 0.9 (1.0-1.7); TOTAL BILIRUBIN 0.8 mg/dL (0.2-1.0); TOTAL PROTEIN 8.4 g/dL (6.4-8.2)
[2021-11-12] MEDS ORDERED: IOHEXOL 300 MG/ML 100ML VIAL. IV ONE (01:00)
[2021-11-12] MEDS ORDERED: CONTRAST GIVEN. MC PRN (01:00)
--- NOTE | 2021-11-12 01:58 | RAD ---
EXAM: CT ABDOMEN/PELVIS WITH CONTRAST. HISTORY: Epigastric pain. TECHNIQUE: Computed tomography of the abdomen and pelvis was performed after the intravenous administ ration of Isovue-370. One or more of the following individualized dose reduction techniques were util ized for this examination: 1. Automated exposure control. 2. Adjustment of the mA and/or kV according to patient size. 3. Use of iterative reconstruction technique. COMPARISON: 12/19/2019. FINDINGS: Lung windows through the visualized portions of the bases reveal mild atelectasis. A small right Bochdalek hernia contains only fat. There are atherosclerotic calcifications of the coronary ar teries. Bone windows reveal no suspicious lesions. There is grade 1 anterolisthesis at L4-5 from face t osteoarthritis. A cyst in the left hepatic lobe measures 4.0 cm and appears benign. The pancreas, adrenal glands, gal lbladder and spleen are unremarkable. The bilateral benign renal cysts measure up to 1.3 cm on the ri ght. There are no pathologically enlarged lymph nodes. There is mild dilatation of the proximal small bowel. No transition point is suspected with thin the infraumbilical region along the inferior margin of mesh repair of the anterior abdominal wall. Left colonic diverticulosis is mild. A small right inguinal hernia contains only fat. IMPRESSION: 1. Small bowel obstruction with transition point along the inferior margin of mesh repair of the ante rior abdominal wall. Electronically signed by: Radha Dukes MD (11/12/2021 1:56 AM) [facility]
[2021-11-12] MEDS ORDERED: NITROGLYCERIN SUBLINGUAL 0.4 MG BOTTLE OF 25. SL PRN (02:30)
[2021-11-12] MEDS ORDERED: IV NORMAL SALINE 1000ML BAG 1,000 ML IV ONE (02:30)
[2021-11-12] MEDS ORDERED: fentaNYL PF VIAL 100 MCG/2 ML VIAL IVP PRN (02:30)
[2021-11-12 03:30] VITALS: BP 182/79
[2021-11-12 07:00] VITALS: BP 163/74
[2021-11-12] MEDS ORDERED: ACETAMINOPHEN 650 MG SUPP.RECT. PR PRN (07:15)
[2021-11-12] MEDS ORDERED: BISACODYL 10 MG SUPP.RECT. PR PRN (07:15)
--- NOTE | 2021-11-12 09:04 | EKG ---
[facility] [address] [place] [address] Test Date: 2021-11-12 Test Time: 00:44:47 Pat Name: FELECIA SHELTON Department: Room: [facility] Gender: F Bad Cloth Checker: : 1950 Requested By: AMADOR RUIZ Order Number: [id number] Reading MD: Wang Bueno Measurements Intervals [place] Rate: 85 P: 39 TX: 172 QRS: -19 QRSD: 86 T: 17 QT: 338 QTc: 407 Interpretive Statements SINUS RHYTHM LEFT ATRIAL ABNORMALITY NON SPECIFIC ST-T WAVE CHANGES Electronically Signed On 11-12-2021 14:47:10 GREENHOUSE SPECIALIST by Wang Bueno
--- NOTE | 2021-11-12 10:11 | NUR ---
SW following. Discussed with RN, pt from home with son, room air, NPO, rapid COVID-19 negative. Surgery following. Per RN, pt gets around okay. RN advised no SW needs at this time. SW will continue to follow.
[2021-11-12 11:00] VITALS: BP 147/69
--- NOTE | 2021-11-12 11:21 | PDOC2 ---
CONSULT Date of Consult Date of Consult DATE: 11/12/21 TIME: 11:17 Reason for Consult Reason for Consult: SBO Referring Physician Referring Physician: ER Identification/Chief Complaint Chief Complaint abdominal pain Source Source: Chart review, Patient History of Present Illness Reason for Visit: Acute onset abdominal pain. Associated nausea and emesis. Currently feels better, eating, had a BM today Past Medical History Cardiovascular: HTN, Hyperlipidemia Past Surgical History Past Surgical History: Cataract Removal, Hernia Repair Family History Family History: No Significant, Other (noncontributory to current illness ) Social History ALCOHOL: none Drugs: None Current Problem List Problem List Problems Medical Problems: (1) Small bowel obstruction Status: Acute Current Medications Current Medications Current Medications Fentanyl Citrate (Fentanyl 2ml Vial) 50 mcg 1X ONCE IVP Last administered on 11/12/21at 00:53; Start 11/12/21 at 00:30; Stop 11/12/21 at 00:31; Status DC Pantoprazole Sodium (PROTONIX VIAL for IV PUSH) 40 mg 1X ONCE IVP Last administered on 11/12/21at 00:50; Start 11/12/21 at 00:30; Stop 11/12/21 at 00:31; Status DC Multi-Ingredient Mouthwash/Gargle (Gi Cocktail) 20 ml 1X ONCE SWSW Last administered on 11/12/21at 00:49; Start 11/12/21 at 00:30; Stop 11/12/21 at 00:31; Status DC Iohexol (Omnipaque 300 Mg/ml) 60 ml 1X ONCE IV Last administered on 11/12/21at 0 1:04; Start 11/12/21 at 01:00; Stop 11/12/21 at 01:01; Status DC Info (CONTRAST GIVEN -- Rx MONITORING) 1 each PRN DAILY PRN MC SEE COMMENTS; Start 11/12/21 at 01:00; Stop 11/14/21 at 00:59 Sodium Chloride 1,000 ml @ 125 mls/hr 1X ONCE IV Last administered on 11/12/21at 02:55; Start 11/12/21 at 02:30; Stop 11/12/21 at 10:29; Status DC Fentanyl Citrate (Fentanyl 2ml Vial) 50 mcg PRN Q1HR PRN IVP PAIN; Start 11/12/21 at 02:30; Stop 11/14/21 at 02:29 Nitroglycerin (Nitrostat) 0.4 mg PRN Q5MIN PRN SL CHEST PAIN; Start 11/12/21 at 02:30; Stop 11/13/21 at 02:29 Acetaminophen (Tylenol Supp) 650 mg PRN Q6HRS PRN [place] MILD PAIN / TEMP > 100.3'F; Start 11/12/21 at 07:15 Bisacodyl (Dulcolax Supp) 10 mg PRN DAILY PRN [place] CONSTIPATION; Start 11/12/21 at 07:15 Ringer's Solution 1,000 ml @ 75 mls/hr [id number] IV ; Start 11/12/21 at 07:15 Active Scripts Active [id number] 50-325-40 (Butalb/Acetaminophen/Caffeine) 1 Each Tablet 1 Each PO Q6HRS PRN Orphenadrine Citrate 100 Mg Tablet.er 1 Tab PO BID [place] 5-325 Tablet (Acetaminophen/Hydrocodone Bitart) 1 Each Tablet 1 Tab PO PRN Q6HRS PRN Ondansetron Odt (Ondansetron) 4 Mg Tab.rapdis 1 Tab PO PRN Q6-8HRS Reported Vitamin D (Cholecalciferol (Vitamin D3)) 1,000 Unit Capsule 1,000 Unit PO Cymbalta (Duloxetine Hcl) 60 Mg Capsule.dr 1 Cap PO DAILY Metoprolol Tartrate 25 Mg Tablet 25 Mg PO BID Acetaminophen 500 Mg Tablet 500 Mg PO Omeprazole 40 Mg Capsule.dr 1 Cap PO DAILY Simvastatin 20 Mg Tablet 20 Mg PO DAILY Amlodipine Besylate 10 Mg Tablet 1 Tab PO DAILY Tramadol Hcl 50 Mg Tablet 50 Mg PO DAILY PRN Potassium Chloride (Potassium Chloride) 10 Meq Capsule.er 1 Cap PO DAILY Allergies Allergies: Coded Allergies: No Known Drug Allergies (Unverified , 08/06/14) ROS General: No: Chills, Appetite (loss) PSYCHOLOGICAL ROS: No: Anxiety, Depression Eyes: No Blurry vision, No Double vision HEENT: No: Heacaches, Sore Throat Hematological and Lymphatic: No: Bleeding Problems, Blood Clots Respiratory: No: Cough, Shortness of breath Cardiovascular: No Chest Pain, No Palpitations Gastrointestinal: Yes Other (see hpi) Genitourinary: No Dysuria, No Hematuria Musculoskeletal: No Joint Pain, No Muscle Pain Neurological: No Impaired Coord/balance, No Numbness/Tingling Skin: No Pruritus, No Rash Physical Exam General: Alert, Oriented X3, Cooperative, No acute distress HEENT: Atraumatic, PERRLA Lungs: Clear to auscultation, Normal air movement Heart: Regular rate, Normal S1, Normal S2 Abdomen: Soft, Other (mild ttp epigastric, ND) Extremities: No clubbing, No cyanosis Skin: No rashes, No breakdown Neuro: Normal gait, Normal speech Psych/Mental Status: Mental status NL, Mood NL MUSCULOSKELETAL: No deformity, No swelling Vitals VITALS Vital Signs Date Time Temp Pulse Resp B/P (MAP) Pulse Ox O2 Delivery O2 Flow Rate FiO2 11/12/21 11:00 97.8 85 18 147/69 (95) 97 Room Air 97.8 Labs Labs Laboratory Tests Test 11/12/21 00:25 11/12/21 02:45 White Blood Count 12.5 x10^3/uL (4.0-11.0) Red Blood Count 5.39 x10^6/uL (3.50-5.40) Hemoglobin 14.5 g/dL (12.0-15.5) Hematocrit 43.1 % (36.0-47.0) Mean Corpuscular Volume 80 fL (79-100) Mean Corpuscular Hemoglobin 27 pg (25-35) Mean Corpuscular Hemoglobin Concent 34 g/dL (31-37) Red Cell Distribution Width 15.6 % (11.5-14.5) Platelet Count 306 x10^3/uL (140-400) Neutrophils (%) (Auto) 77 % (31-73) Lymphocytes (%) (Auto) 14 % (24-48) Monocytes (%) (Auto) 6 % (0-9) Eosinophils (%) (Auto) 2 % (0-3) Basophils (%) (Auto) 1 % (0-3) Neutrophils # (Auto) 9.6 x10^3/uL (1.8-7.7) Lymphocytes # (Auto) 1.8 x10^3/uL (1.0-4.8) Monocytes # (Auto) 0.7 x10^3/uL (0.0-1.1) Eosinophils # (Auto) 0.2 x10^3/uL (0.0-0.7) Basophils # (Auto) 0.1 x10^3/uL (0.0-0.2) Sodium Level 141 mmol/L (136-145) Potassium Level 3.8 mmol/L (3.5-5.1) Chloride Level 103 mmol/L (98-107) Carbon Dioxide Level 32 mmol/L (21-32) Anion Gap 6 (6-14) Blood Urea Nitrogen 28 mg/dL (7-20) Creatinine 1.4 mg/dL (0.6-1.0) Estimated GFR (Cockcroft-Gault) 44.7 BUN/Creatinine Ratio 20 (6-20) Glucose Level 111 mg/dL (70-99) Lactic Acid Level 1.5 mmol/L (0.4-2.0) Calcium Level 10.1 mg/dL (8.5-10.1) Total Bilirubin 0.8 mg/dL (0.2-1.0) Aspartate Amino Transf (AST/SGOT) 15 U/L (15-37) Alanine Aminotransferase (ALT/SGPT) 12 U/L (14-59) Alkaline Phosphatase 57 U/L (46-116) Troponin I High Sensitivity 6 ng/L (4-50) Total Protein 8.4 g/dL (6.4-8.2) Albumin 4.0 g/dL (3.4-5.0) Albumin/Globulin Ratio 0.9 (1.0-1.7) Lipase 59 U/L (73-393) SARS-CoV-2 RNA (YESENIA) Negative (Negative) SARS-CoV-2 Antigen (Rapid) Negative (NEGATIVE) Laboratory Tests Test 11/12/21 00:25 11/12/21 02:45 White Blood Count 12.5 x10^3/uL (4.0-11.0) Red Blood Count 5.39 x10^6/uL (3.50-5.40) Hemoglobin 14.5 g/dL (12.0-15.5) Hematocrit 43.1 % (36.0-47.0) Mean Corpuscular Volume 80 fL (79-100) Mean Corpuscular Hemoglobin 27 pg (25-35) Mean Corpuscular Hemoglobin Concent 34 g/dL (31-37) Red Cell Distribution Width 15.6 % (11.5-14.5) Platelet Count 306 x10^3/uL (140-400) Neutrophils (%) (Auto) 77 % (31-73) Lymphocytes (%) (Auto) 14 % (24-48) Monocytes (%) (Auto) 6 % (0-9) Eosinophils (%) (Auto) 2 % (0-3) Basophils (%) (Auto) 1 % (0-3) Neutrophils # (Auto) 9.6 x10^3/uL (1.8-7.7) Lymphocytes # (Auto) 1.8 x10^3/uL (1.0-4.8) Monocytes # (Auto) 0.7 x10^3/uL (0.0-1.1) Eosinophils # (Auto) 0.2 x10^3/uL (0.0-0.7) Basophils # (Auto) 0.1 x10^3/uL (0.0-0.2) Sodium Level 141 mmol/L (136-145) Potassium Level 3.8 mmol/L (3.5-5.1) Chloride Level 103 mmol/L (98-107) Carbon Dioxide Level 32 mmol/L (21-32) Anion Gap 6 (6-14) Blood Urea Nitrogen 28 mg/dL (7-20) Creatinine 1.4 mg/dL (0.6-1.0) Estimated GFR (Cockcroft-Gault) 44.7 BUN/Creatinine Ratio 20 (6-20) Glucose Level 111 mg/dL (70-99) Lactic Acid Level 1.5 mmol/L (0.4-2.0) Calcium Level 10.1 mg/dL (8.5-10.1) Total Bilirubin 0.8 mg/dL (0.2-1.0) Aspartate Amino Transf (AST/SGOT) 15 U/L (15-37) Alanine Aminotransferase (ALT/SGPT) 12 U/L (14-59) Alkaline Phosphatase 57 U/L (46-116) Troponin I High Sensitivity 6 ng/L (4-50) Total Protein 8.4 g/dL (6.4-8.2) Albumin 4.0 g/dL (3.4-5.0) Albumin/Globulin Ratio 0.9 (1.0-1.7) Lipase 59 U/L (73-393) SARS-CoV-2 RNA (YESENIA) Negative (Negative) SARS-CoV-2 Antigen (Rapid) Negative (NEGATIVE) Assessment/Plan Assessment/Plan SBO vs ileus, rapidly improved, had stool, tolerating diet no current surgical indications SCOTTY STEVENS APRN Nov 12, 2021 11:21
--- NOTE | 2021-11-12 12:39 | SSS ---
DATE OF SERVICE: 11/12/2021 ADMIT DATE: 11/12/2021 CHIEF COMPLAINT: Abdominal pain. HISTORY OF PRESENT ILLNESS: The patient is a pleasant 71-year-old female who presented to the ER with abdominal pain last night. We did some imaging that showed a possible small-bowel obstruction. She was admitted for observation. This morning, I saw and examined her. She is doing well. She wants to go home. She states she just had a bowel movement. I spoke with the nurse. We are going to give her some food and if she tolerates that, let her go home. PAST MEDICAL HISTORY: Arthritis, constipation, depression, GERD, hyperlipidemia, hypertension, gastritis, osteoarthritis, degenerative disk disease, chronic pain, abdominal mesh, cataract surgery. ALLERGIES: None. FAMILY HISTORY: Diabetes. SOCIAL HISTORY: She does not drink, smoke or take drugs. MEDICATIONS: Reviewed. Please refer to the MRAD. REVIEW OF SYSTEMS: GENERAL: No history of weight change, weakness or fevers. SKIN: No bruising, hair changes or rashes. EYES: No blurred, double or loss of vision. NOSE AND THROAT: No history of nosebleeds, hoarseness or sore throat. HEART: No history of palpitations, chest pain or shortness of breath on exertion. LUNGS: Denies cough, hemoptysis, wheezing or shortness of breath. GASTROINTESTINAL: Denies changes in appetite, nausea, vomiting, diarrhea or constipation. GENITOURINARY: No history of frequency, urgency, hesitancy or nocturia. NEUROLOGIC: Denies history of numbness, tingling, tremor or weakness. PSYCHIATRIC: No history of panic, anxiety or depression. ENDOCRINE: No history of heat or cold intolerance, polyuria or polydipsia. EXTREMITIES: Denies muscle weakness, joint pain, pain on walking or stiffness. PHYSICAL EXAMINATION: VITALS: Within normal limits and are stable. GENERAL: No apparent distress. Alert and oriented. HEENT: Normal cephalic atraumatic, external auditory canals are patent. EYES: Extraocular muscles are intact, pupils are equally round and reactive to light and accommodation. MUSCULOSKELETAL: Well developed, well nourished, good range of motion. ENDOCRINE: No thyromegaly was palpated. LYMPHATICS: No cervical chain or axillary nodes were noted. HEMATOPOIETIC: No bruising. NECK: Supple, no JVD, no thyromegaly was noted. LUNGS: Clear to auscultation in all lung vyas without rhonchi or wheezing. HEART: RRR, S1, S2 present. Peripheral pulses intact, no obvious murmurs were noted. ABDOMEN: Soft, nontender. Positive bowel sounds no organomegaly, normal bowel sounds. EXTREMITIES: Without any cyanosis, clubbing, or edema. Pedal pulses intact, Homans sign is negative. NEUROLOGIC: Normal speech, normal tone. A and O x 3, moves all extremities, no obvious focal deficits. PSYCHIATRIC: Normal affect, normal mood. Stable. SKIN: No ulcerations or rashes, good skin turgor, no jaundice. VASCULAR: Good capillary refill, neurovascular bundle appears to be intact. LABORATORY DATA: White count 12.5. ASSESSMENT AND PLAN: Resolving small-bowel obstruction. We will go ahead and try clear liquids and advance her diet. If she tolerates that, we will let her go home. SOFIA/KARINE/AZAM DR: Santa TID: [id number]
[2021-11-12] MEDS: IV RINGERS,LACTATED 1000ML 1,000 ML IV SCH ×2 (14:32→20:35)
[2021-11-12 15:00] VITALS: BP 135/72
[2021-11-12 19:00] VITALS: BP 161/73
[2021-11-12] MEDS ORDERED: ZOLPIDEM 5 MG TABLET. PO PRN (21:00)
[2021-11-12 23:00] VITALS: BP 152/77
[2021-11-13 03:00] VITALS: BP 147/72
[2021-11-13 07:00] VITALS: BP 153/65
[2021-11-13] MEDS: IV RINGERS,LACTATED 1000ML 1,000 ML IV SCH (07:55)
[2021-11-13 08:16] LABS: BASO % 1 % (0-3); EOS # 0.3 x10^3/uL (0.0-0.7); EOS % 6 % (0-3); HEMATOCRIT 38.5 % (36.0-47.0); HEMOGLOBIN 12.7 g/dL (12.0-15.5); LYMPH # 1.3 x10^3/uL (1.0-4.8); LYMPH % 26 % (24-48); MEAN CORPUSCULAR HEMOGLOBIN 27 pg (25-35); MEAN CORPUSCULAR HGB CONC 33 g/dL (31-37); MEAN CORPUSCULAR VOLUME 82 fL (79-100); MONO # 0.4 x10^3/uL (0.0-1.1); MONO % 8 % (0-9); NEUT # 3.1 x10^3/uL (1.8-7.7); NEUT % 60 % (31-73); PLATELET COUNT 232 x10^3/uL (140-400); RED BLOOD COUNT 4.72 x10^6/uL (3.50-5.40); RED CELL DISTRIBUTION WIDTH 15.6 % (11.5-14.5); WHITE BLOOD COUNT 5.2 x10^3/uL (4.0-11.0)
[2021-11-13 08:34] LABS: CREATININE 0.7 mg/dL (0.6-1.0); GFR 99.5; POTASSIUM 3.6 mmol/L (3.5-5.1)
--- NOTE | 2021-11-13 08:42 | PDOC ---
SURGICAL PROGRESS NOTE DATE: 11/13/21 TIME: 08:41 Subjective had some nausea and pain yesterday now resolved, starting her breakfast Vital Signs Vital Signs Date Time Temp Pulse Resp B/P (MAP) Pulse Ox O2 Delivery O2 Flow Rate FiO2 11/13/21 07:00 97.9 84 18 153/65 (94) 95 97.9 11/12/21 20:00 Room Air I&O Intake and Output 11/13/21 07:00 # Voids 2 # Bowel Movements 1 General: Alert, Oriented X3, Cooperative Abdomen: Soft, No tenderness Labs Laboratory Tests Test 11/12/21 00:25 11/12/21 02:45 11/13/21 08:00 White Blood Count 12.5 x10^3/uL (4.0-11.0) 5.2 x10^3/uL (4.0-11.0) Red Blood Count 5.39 x10^6/uL (3.50-5.40) 4.72 x10^6/uL (3.50-5.40) Hemoglobin 14.5 g/dL (12.0-15.5) 12.7 g/dL (12.0-15.5) Hematocrit 43.1 % (36.0-47.0) 38.5 % (36.0-47.0) Mean Corpuscular Volume 80 fL (79-100) 82 fL (79-100) Mean Corpuscular Hemoglobin 27 pg (25-35) 27 pg (25-35) Mean Corpuscular Hemoglobin Concent 34 g/dL (31-37) 33 g/dL (31-37) Red Cell Distribution Width 15.6 % (11.5-14.5) 15.6 % (11.5-14.5) Platelet Count 306 x10^3/uL (140-400) 232 x10^3/uL (140-400) Neutrophils (%) (Auto) 77 % (31-73) 60 % (31-73) Lymphocytes (%) (Auto) 14 % (24-48) 26 % (24-48) Monocytes (%) (Auto) 6 % (0-9) 8 % (0-9) Eosinophils (%) (Auto) 2 % (0-3) 6 % (0-3) Basophils (%) (Auto) 1 % (0-3) 1 % (0-3) Neutrophils # (Auto) 9.6 x10^3/uL (1.8-7.7) 3.1 x10^3/uL (1.8-7.7) Lymphocytes # (Auto) 1.8 x10^3/uL (1.0-4.8) 1.3 x10^3/uL (1.0-4.8) Monocytes # (Auto) 0.7 x10^3/uL (0.0-1.1) 0.4 x10^3/uL (0.0-1.1) Eosinophils # (Auto) 0.2 x10^3/uL (0.0-0.7) 0.3 x10^3/uL (0.0-0.7) Basophils # (Auto) 0.1 x10^3/uL (0.0-0.2) 0.0 x10^3/uL (0.0-0.2) Sodium Level 141 mmol/L (136-145) 142 mmol/L (136-145) Potassium Level 3.8 mmol/L (3.5-5.1) 3.6 mmol/L (3.5-5.1) Chloride Level 103 mmol/L (98-107) 105 mmol/L (98-107) Carbon Dioxide Level 32 mmol/L (21-32) 27 mmol/L (21-32) Anion Gap 6 (6-14) 10 (6-14) Blood Urea Nitrogen 28 mg/dL (7-20) 6 mg/dL (7-20) Creatinine 1.4 mg/dL (0.6-1.0) 0.7 mg/dL (0.6-1.0) Estimated GFR (Cockcroft-Gault) 44.7 99.5 BUN/Creatinine Ratio 20 (6-20) Glucose Level 111 mg/dL (70-99) 98 mg/dL (70-99) Lactic Acid Level 1.5 mmol/L (0.4-2.0) Calcium Level 10.1 mg/dL (8.5-10.1) 8.0 mg/dL (8.5-10.1) Total Bilirubin 0.8 mg/dL (0.2-1.0) Aspartate Amino Transf (AST/SGOT) 15 U/L (15-37) Alanine Aminotransferase (ALT/SGPT) 12 U/L (14-59) Alkaline Phosphatase 57 U/L (46-116) Troponin I High Sensitivity 6 ng/L (4-50) Total Protein 8.4 g/dL (6.4-8.2) Albumin 4.0 g/dL (3.4-5.0) Albumin/Globulin Ratio 0.9 (1.0-1.7) Lipase 59 U/L (73-393) SARS-CoV-2 RNA (YESENIA) Negative (Negative) SARS-CoV-2 Antigen (Rapid) Negative (NEGATIVE) Laboratory Tests Test 11/13/21 08:00 White Blood Count 5.2 x10^3/uL (4.0-11.0) Red Blood Count 4.72 x10^6/uL (3.50-5.40) Hemoglobin 12.7 g/dL (12.0-15.5) Hematocrit 38.5 % (36.0-47.0) Mean Corpuscular Volume 82 fL (79-100) Mean Corpuscular Hemoglobin 27 pg (25-35) Mean Corpuscular Hemoglobin Concent 33 g/dL (31-37) Red Cell Distribution Width 15.6 % (11.5-14.5) Platelet Count 232 x10^3/uL (140-400) Neutrophils (%) (Auto) 60 % (31-73) Lymphocytes (%) (Auto) 26 % (24-48) Monocytes (%) (Auto) 8 % (0-9) Eosinophils (%) (Auto) 6 % (0-3) Basophils (%) (Auto) 1 % (0-3) Neutrophils # (Auto) 3.1 x10^3/uL (1.8-7.7) Lymphocytes # (Auto) 1.3 x10^3/uL (1.0-4.8) Monocytes # (Auto) 0.4 x10^3/uL (0.0-1.1) Eosinophils # (Auto) 0.3 x10^3/uL (0.0-0.7) Basophils # (Auto) 0.0 x10^3/uL (0.0-0.2) Sodium Level 142 mmol/L (136-145) Potassium Level 3.6 mmol/L (3.5-5.1) Chloride Level 105 mmol/L (98-107) Carbon Dioxide Level 27 mmol/L (21-32) Anion Gap 10 (6-14) Blood Urea Nitrogen 6 mg/dL (7-20) Creatinine 0.7 mg/dL (0.6-1.0) Estimated GFR (Cockcroft-Gault) 99.5 Glucose Level 98 mg/dL (70-99) Calcium Level 8.0 mg/dL (8.5-10.1) Problem List Problems Medical Problems: (1) Small bowel obstruction Status: Acute Assessment/Plan sbo vs ileus improving no surgical plans chart, round 15 mins Justicifation of Admission Dx: Justifications for Admission: Justification of Admission Dx: Yes Comments: SCOTTY Estrada APRN Nov 13, 2021 08:42
--- NOTE | 2021-11-13 10:44 | NUR ---
Discharge Note: ZENA SHELTON Discharge instructions and discharge home medications reviewed with Patient and a copy given. All questions have been answered and understanding verbalized. The following instructions and handouts were given: information about follow up appointment, SBO, activity, diet. Discontinued lines and drains: IV line in right AC removed, catheter tip intact. Patient discharged to home with self care with family member, wheelchair used for mobility to discharge vehicle.
[2021-11-13 10:50] VITALS: BP 114/65
== END 2021-11-13 10:44 | disposition home or self-care (01) ==
LOC: ER 23:42 → 4 NORTH 11-12 02:34 → INTOOBSV 11-12 02:34
PROVIDERS: ADMIT Internal Medicine; ATTEND Internal Medicine
DX: K56.609 Unspecified intestinal obstruction, unspecified as to partial versus complete obstruction (principal); Z20.822 Contact with and (suspected) exposure to COVID-19; I10 Essential (primary) hypertension; K21.9 Gastro-esophageal reflux disease without esophagitis; E78.00 Pure hypercholesterolemia, unspecified; E78.5 Hyperlipidemia, unspecified; M19.90 Unspecified osteoarthritis, unspecified site; K59.00 Constipation, unspecified; F32.A Depression, unspecified; Z79.899 Other long term (current) drug therapy; Z98.890 Other specified postprocedural states; Z98.49 Cataract extraction status, unspecified eye
CPT/HCPCS: 36415; 74177; 80048; 80053; 83605; 83690; 84484; 85025; 87426; 93005; 96361; 96374; 96375; 99285; C9113; G0378; J3010; J7030; J7120; Q9967; U0003; U0005; G0379

== ENCOUNTER → 2022-01-10 | Outpatient (CLI) | payer MEDICARE ==
--- NOTE | 2022-01-10 11:49 | RAD ---
EXAMINATION: MG DIGITAL BILAT DIAGNOSTIC MAMMO WITH ALISON, US BREAST LT CLINICAL HISTORY: Left breast tenderness. Left-sided soft tissue nodule on outside CT abdomen/pelvis 12/16/2021 TECHNIQUE: Digital craniocaudal and mediolateral oblique views of the bilateral breasts obtained with 3-D tomosynthesis. Targeted left breast ultrasound also performed. COMPARISON: Mammograms 11/05/2020, 09/19/2019, 09/12/2018, 07/24/2017, 04/09/2014; CT abdomen/pelvis 2021, 12/19/2019, 08/06/2014 BREAST COMPOSITION: There are scattered areas of fibroglandular density. FINDINGS: BILATERAL DIAGNOSTIC MAMMOGRAM: No evidence of suspicious mass, calcifications, or areas of architectural distortion. LEFT BREAST ULTRASOUND: At 9:00 position 20 cm from the nipple, there is an oval circumscribed hypoechoic mass with internal vascularity measuring 1.8 x 0.9 x 1.1 cm deep to the breast parenchyma and a slip of the latissimus d orsi muscle. This corresponds to a soft tissue mass that appears stable on CT scans dating back to 20. No definite mass is seen in this region on comparison CT from 2013. No left axillary lymphadenopa thy. IMPRESSION: No evidence of malignancy in the bilateral breasts. Nonspecific 1.9 cm mass deep to the left latissimus dorsi muscle, essentially unchanged since 2019. R ecommend clinical management and consider percutaneous biopsy for further evaluation if indicated. BI-RADS ASSESSMENT: Category 2: Benign findings in the breasts RECOMMENDATION: Return for routine bilateral screening mammogram in one year. PQRS compliance statement - Patient information was entered into a reminder system with a target due date for the next mammogram. "Our facility is accredited by the [employer] Mammography Program." Electronically signed by: Ck Kaur DO (01/10/2022 11:47 AM) [email or web address]
== END ==
LOC: MAMMO 10:24
PROVIDERS: ATTEND Family Medicine
DX: N63.22 Unspecified lump in the left breast, upper inner quadrant (principal)
CPT/HCPCS: 76641; 77066; G0279; 77062